=== PATIENT | male | born 1980 | race Caucasian/White ===

== ENCOUNTER 2020-05-09 22:20 | Emergency (ER) | payer OTHER, SELFPAY ==
[2020-05-09 22:37] VITALS: BP 142/77; PULSE 116; RESP 20; TEMP 37.2; O2SAT 93; BMI 43.8
--- NOTE | 2020-05-09 23:16 | XR_ITS ---
EXAMINATION: PORTABLE CHEST 1 VIEW CLINICAL INFORMATION: COVID symptoms . COMPARISON: No recent pertinent prior studies are available for comparison. TECHNIQUE: Portable frontal view of the chest was obtained. FINDINGS: The lungs are well expanded. No dense consolidation, focal infiltrate, effusion, edema, or pneumothorax. Cardiac and mediastinal silhouettes are within normal limits for technique. No acute bony abnormality seen. XR/XR chest 1V IMPRESSION: No dense consolidation or obvious focal infiltrate seen.
[2020-05-09 23:54] LABS: MANUAL DIFF FLAG NO
[2020-05-09 23:55] LABS: Basophils Percent Auto 0.3 % (0-2); Eosinophils Absolute Auto 0.1 X10*3/uL (0.0-0.4); Eosinophils Percent Auto 0.5 % (0-4); Hematocrit 52.7 % (42-52); Hemoglobin 15.6 g/dl (14.0-18.0); Imm Gran Abs Auto 0.05 X10*3/uL (0.00-0.03); Imm Gran Pct Auto 0.4 % (0.0-0.4); Lymphocytes Absolute Auto 2.5 X10*3/uL (1.2-4.9); Lymphocytes Percent Auto 18.7 % (20-40); Mean Corpuscular HGB Conc 29.6 g/dl (31.0-36.0); Mean Corpuscular Hemoglobin 24.5 pg (27.0-33.0); Mean Corpuscular Volume 82.7 fL (80-98); Mean Platelet Volume 8.8 fL (9.4-12.4); Monocytes Absolute Auto 0.8 X10*3/uL (0.1-1.2); Monocytes Percent Auto 6.3 % (2-11); Neutrophils Absolute Auto 9.7 X10*3/uL (2.0-8.3); Neutrophils Percent Auto 73.8 % (45-73); Platelet Count 341 X10*3/uL (160-400); Red Blood Count 6.37 X10*6/uL (4.60-5.80); Red Cell Distribution Width 17.2 % (11.0-16.0); White Blood Count 13.1 X10*3/uL (4.8-10.8)
[2020-05-10 00:12] LABS: Lactic Acid 1.7 mmol/L (0.5-2.0)
[2020-05-10 00:15] LABS: Anion Gap 13 (12-20); Blood Urea Nitrogen 11 mg/dL (9-16); Carbon Dioxide 31 mmol/L (22-29); Chloride 99 mmol/L (96-108); Creatinine Clr Calc Pharmacy 132.2; Estimated Glomerular Filt Rate > 60; Glucose Random 147 mg/dL (60-115); Potassium 4.4 mmol/l (3.3-5.1); Sodium 139 mmol/L (135-145)
--- NOTE | 2020-05-10 00:16 | ED_ITS ---
HPI - General Adult General Chief complaint: General Medical Stated complaint: fever Time Seen by Provider: 05/09/20 23:08 Source: patient Mode of arrival: ambulatory Limitations: language barrier History of Present Illness HPI narrative: 39 yo male with history of asthma, active smoker, obesity, diverticulitis s/p colostomy who presents with muscle aches, sore throat, abdominal rash and intermittent fever at home for the last 2 days after exposure to his in-law who were both found to be COVID-19 positive. Rash started under his left breast and spread to his abdominal wall. It is red, raised and itchy. He states he has a chronic cough from smoking but has noticed a slight wheeze as well. He is mildly SOB on exertion. Cough is dry and causes chest soreness. MD complaint: flu-like symptoms Onset (ago): day(s) (2) Location: mouth, chest and abdomen Radiation: non-radiation Severity: moderate Quality: aching Pain Consistency: intermittent Relieving factors: rest Exacerbating factors: movement Associated symptoms: cough, fever/chills, headaches, loss of appetite, malaise and rash Treatments prior to arrival: none Related Data Previous Rx's Medication Instructions Recorded albuterol sulfate 2 puff INHALATION Q4-6H PRN #6.7 g 05/10/20 azithromycin [Zithromax Z-Javon] See Rx Instructions PO .COMPLEX #6 05/10/20 tab prednisone 50 mg PO DAILY #5 tab 05/10/20 Allergies Allergy/AdvReac Type Severity Reaction Status Date / Time No Known Allergies Allergy Verified 05/09/20 22:37 [No Known Allergies*] Review of Systems Review of Systems: Constitutional: + Fever, + Chills ENT/Mouth: + sore throat, + Rhinorrhea, No Swallowing Difficulty Eyes: No Eye Pain, No Swelling, No Redness Cardiovascular: No Chest Pain, + SOB, No Orthopnea, No Edema Respiratory: + Cough, No Sputum, + Wheezing, + dyspnea Gastrointestinal: No Nausea, No Vomiting, No Diarrhea, No abdominal Pain Genitourinary: No Dysuria, No Urinary Frequency, No Hematuria Musculoskeletal: No joint pain, + Myalgias Skin: + Skin Lesions, + rash Neuro: No Weakness, No Numbness, No Dizziness, + Headache Psych: No Anxiety/Panic, No Depression Heme/Lymph: No Bruising, No Lymphadenopathy Endocrine: No Polyuria, No Polydipsia [facility] Past Medical History Medical History Asthma Colostomy in place Social History Social History Advance Directives: No Advance Directives Information Provided: No Physical Exam Vital Signs: Vital Signs: Last Vital Signs Temp 98.9 F 05/09/20 22:37 Pulse 116 H 05/09/20 22:37 Resp 20 05/09/20 22:37 BP 142/77 H 05/09/20 22:37 Pulse Ox 93 05/09/20 22:37 Body Mass Index 43.8 Appearance: Alert. Oriented X3. No acute distress. Eyes: Pupils equal, round and reactive to light. ENT: Pharynx normal. Neck: Normal inspection. Neck supple. CVS: rapid rate with regular rhythm. Pulses normal. Respiratory: No respiratory distress. Mild expiratory wheezes throughout. No rhonchi or rales Abdomen: Obese, Soft and nontender. +BS x4 Skin: cirucular red, raised and erythmatous rash under left breast and under colostomy bag on abd wall Extremities: No lower extremity edema. Neuro: Oriented X 3. No motor deficit. No sensory deficit. Course Course Course Narrative: 39 y/o male presenting with COVID symptoms after exposure. He is slightly wheezy on exam with tachycardia. He is in no respiratory distress. Low suspicion for PE. Will check COVID, flu/RSV, basic labs and CXR. Reevaluation(s) Reevaluation #1: CXR shows no pneumonia. WBC 13K with normal lactic. COVID/Flu/RSV panel is NEGATIVE. He is here with his spouse who is POSITIVE. His test is likely a false negative. This was discussed with the patient. Will treat for acute asthma exacerbation with prednisone x 5 days and give Rx for albuterol inhaler. Smoking cessation was discussed with the patient at length. Stable for discharge. Medical Decision Making Lab Data Result diagrams: 05/09/20 23:41 05/09/20 23:41 Labs: Lab Results 05/09/20 05/09/20 05/09/20 Range/Units 23:41 23:41 23:41 WBC 13.1 H (4.8-10.8) X10*3/uL RBC 6.37 H (4.60-5.80) X10*6/uL Hgb 15.6 (14.0-18.0) g/dl Hct 52.7 H (42-52) % MCV 82.7 (80-98) fL MCH 24.5 L (27.0-33.0) pg MCHC 29.6 L (31.0-36.0) g/dl RDW 17.2 H (11.0-16.0) % Plt Count 341 (160-400) X10*3/uL MPV 8.8 L (9.4-12.4) fL Immature Gran % (Auto) 0.4 (0.0-0.4) % Neut % (Auto) 73.8 H (45-73) % Lymph % (Auto) 18.7 L (20-40) % [place] % (Auto) 6.3 (2-11) % Eos % (Auto) 0.5 (0-4) % Baso % (Auto) 0.3 (0-2) % Lymph # (Auto) 2.5 (1.2-4.9) X10*3/uL [place] # (Auto) 0.8 (0.1-1.2) X10*3/uL Eos # (Auto) 0.1 (0.0-0.4) X10*3/uL Baso # (Auto) 0.0 (0.0-0.2) X10*3/uL Abs Immat Gran (auto) 0.05 H (0.00-0.03) X10*3/uL Absolute Neuts (auto) 9.7 H (2.0-8.3) X10*3/uL Absolute Nucleated RBC 0.000 (0.0-0.012) X10*3/uL Nucleated RBC % (auto) 0.0 (0.0-0.2) /100WBC Sodium 139 (135-145) mmol/L Potassium 4.4 (3.3-5.1) mmol/l Chloride 99 (96-108) mmol/L Carbon Dioxide 31 H (22-29) mmol/L Anion Gap 13 (12-20) BUN 11 (9-16) mg/dL Creatinine 0.95 (0.5-1.4) mg/dL Estim Creat Clear Calc 132.2 Estimated GFR > 60 Random Glucose 147 H (60-115) mg/dL Lactic Acid (0.5-2.0) mmol/L Calcium 9.0 (8.4-10.2) mg/dL Coronavirus (PCR) NEGATIVE (Negative) Influenza Type A (PCR) NEGATIVE (Negative) Influenza Type B (PCR) NEGATIVE (Negative) RSV RNA Qual (PCR) NEGATIVE (Negative) 05/09/20 Range/Units 23:41 WBC (4.8-10.8) X10*3/uL RBC (4.60-5.80) X10*6/uL Hgb (14.0-18.0) g/dl Hct (42-52) % MCV (80-98) fL MCH (27.0-33.0) pg MCHC (31.0-36.0) g/dl RDW (11.0-16.0) % Plt Count (160-400) X10*3/uL MPV (9.4-12.4) fL Immature Gran % (Auto) (0.0-0.4) % Neut % (Auto) (45-73) % Lymph % (Auto) (20-40) % [place] % (Auto) (2-11) % Eos % (Auto) (0-4) % Baso % (Auto) (0-2) % Lymph # (Auto) (1.2-4.9) X10*3/uL [place] # (Auto) (0.1-1.2) X10*3/uL Eos # (Auto) (0.0-0.4) X10*3/uL Baso # (Auto) (0.0-0.2) X10*3/uL Abs Immat Gran (auto) (0.00-0.03) X10*3/uL Absolute Neuts (auto) (2.0-8.3) X10*3/uL Absolute Nucleated RBC (0.0-0.012) X10*3/uL Nucleated RBC % (auto) (0.0-0.2) /100WBC Sodium (135-145) mmol/L Potassium (3.3-5.1) mmol/l Chloride (96-108) mmol/L Carbon Dioxide (22-29) mmol/L Anion Gap (12-20) BUN (9-16) mg/dL Creatinine (0.5-1.4) mg/dL Estim Creat Clear Calc Estimated GFR Random Glucose (60-115) mg/dL Lactic Acid 1.7 (0.5-2.0) mmol/L Calcium (8.4-10.2) mg/dL Coronavirus (PCR) (Negative) Influenza Type A (PCR) (Negative) Influenza Type B (PCR) (Negative) RSV RNA Qual (PCR) (Negative) Critical Care Time Critical Care Time Critical Care Time: No Discharge Plan Discharge Clinical Impression: COVID-19 Asthma exacerbation Qualifiers: Asthma severity: mild Asthma persistence: intermittent Qualified Code(s): J45.21 - Mild intermittent asthma with (acute) exacerbation Patient Disposition: Home, Self-Care Instructions: Asthma (ED), COVID-19 (Coronavirus Disease 2019) (ED) Additional Instructions: You were tested for COVID-19, Influenza A, B and RSV today. You were NEGATIVE for all of them. However because of your known exposure and your significant other being positive - your test is likely a FALSE NEGATIVE. There is no indication to repeat the test as it would not exchange mechanic at all. Assume you are COVID positive. Do not go out in public, stay home and rest. Take over the counter cold/flu medications as needed for your symptoms. Follow up with your doctor. STOP SMOKING. If you develop difficulty breathing, shortness of breath or chest pain call 911 or come back to the ER for further evaluation. Prescriptions: New prednisone 50 mg tablet 50 mg PO DAILY Qty: 5 RF: 0 albuterol sulfate 90 mcg/actuation HFA aerosol inhaler 2 puff inhalation Q4-6H PRN (Reason: shortness of breath or wheezing) Qty: 6.7 RF: 0 azithromycin [Zithromax Z-Javon] 250 mg tablet See Rx Instructions PO .COMPLEX Qty: 6 RF: 0
[2020-05-10 00:44] LABS: Influenza A PCR NEGATIVE (Negative); Influenza B PCR NEGATIVE (Negative); Resp Syncy Virus RNA Qual PCR NEGATIVE (Negative); SARS COV2 PCR INHOUSE NEGATIVE (Negative)
[2020-05-10] MEDS: Albuterol Sulfate 90 MCG 8 GM INHALER 4 PUFF INHALE (00:46)
--- NOTE | 2020-05-10 01:01 | PC.NURSE ---
GIVEN WATER PER PATIENT REQUEST.
== END 2020-05-10 01:15 | disposition home or self-care (01) ==
PROVIDERS: Physician Assistant; Emergency Provider Student in an Organized Health Care Education/Training Program
DX: J45.21 Mild intermittent asthma with (acute) exacerbation (principal); R50.9 Fever, unspecified; Z20.828 Contact with and (suspected) exposure to other viral communicable diseases
CPT/HCPCS: 0241U; 36415; 71045; 80048; 83605; 85025; 99283

== ENCOUNTER 2020-06-03 22:48 | Emergency (ER) | payer OTHER, SELFPAY ==
--- NOTE | 2020-06-03 22:57 | ED.GENADULT ---
HPI - General Adult General Chief complaint: Upper Respiratory Symptoms Stated complaint: Flu like symptoms Time Seen by Provider: 06/03/20 22:57 Source: patient Mode of arrival: ambulatory Limitations: no limitations History of Present Illness HPI narrative: This is a 39-year-old male who is an every day smoker as well as having asthma and states that he has been experiencing sore throat and dry cough for the past 2-3 days and he is concerned because his was COVID-19 positive 1 month ago. Of note, patient states that he was also tested 1 month ago but was found to be negative. He denies any shortness of breath or chest pain/palpitations but does state he had a subjective fever yesterday. Patient states he has not gotten his flu vaccine this year and used his inhaler 1 hour prior to presentation. Related Data Previous Rx's Medication Instructions Recorded albuterol sulfate 2 puff INHALATION Q4-6H PRN #6.7 g 05/10/20 azithromycin [Zithromax Z-Javon] See Rx Instructions PO .COMPLEX #6 05/10/20 tab ketoconazole 1 applic TOPICAL BID #30 g 05/10/20 prednisone 50 mg PO DAILY #5 tab 05/10/20 prednisone 40 mg PO DAILY 5 Days #10 tab 06/03/20 Allergies Allergy/AdvReac Type Severity Reaction Status Date / Time No Known Allergies Allergy Verified 05/09/20 22:37 [No Known Allergies*] Review of Systems Review of Systems: Pertinent positives and negatives as stated in HPI 10 point review of systems is otherwise negative. PMFSH Past Medical History Source: nursing notes reviewed Medical History Asthma Colostomy in place Social History Social History Advance Directives: No Physical Exam Vital Signs: Vital Signs: Last Vital Signs Temp 98.4 F 06/03/20 23:07 Pulse 107 H 06/03/20 23:07 Resp 18 06/03/20 23:07 BP 148/101 H 06/03/20 23:07 Pulse Ox 94 06/03/20 23:07 Body Mass Index 42.5 VITAL SIGNS: Reviewed. GENERAL: Well developed, well nourished, in no acute distress. HEAD: Normocephalic/atraumatic, EYES: PERRLA, EOMI intact without pain, no nystagmus/pallor/icterus noted EARS: Ext canals without abnormality, TMs non-bulging and non-erythematous NOSE: Nares patent bilateral OROPHARYNX: no oral lesions noted, posterior pharynx clear and non-erythematous without noted tonsillar enlargement/erythema/exudates NECK: Supple, no adenopathy LUNGS: Normal breath sounds. No adventitious sounds or accessory muscle use. SpO2<94> CARDIOVASCULAR: Regular rate and rhythm without noted murmurs, no JVD or lower extremity edema. ABDOMEN: Soft, non-tender, non-distended with bowel sounds. No rigidity. No guarding. No palpable masses or hernias noted, colostomy with brown stool MUSCULOSKELETAL: No tenderness, deformities, or effusions noted on gross inspection. EXTREMITIES: No cyanosis, clubbing or edema. SKIN: Inspection of the skin reveals no rashes, ulcerations, jaundice, pallor, or petechiae. NEUROLOGIC: Alert and oriented x 4. Strength and sensation to light touch were grossly intact x 4. Course Course Course Narrative: This is a 39-year-old male with history and clinical presentation most consistent with likely mild asthmatic symptoms and he was strongly encouraged to get the flu vaccine and follow-up with his primary care provider. He will be discharged with a short course of steroids but was strongly recommended to stop smoking. Who is otherwise discharged in stable condition. Discharge Plan Discharge Clinical Impression: Viral infection, Close exposure to COVID-19 virus Asthma Qualifiers: Asthma severity: mild Asthma persistence: unspecified Asthma complication type: unspecified Qualified Code(s): J45.909 - Unspecified asthma, uncomplicated Patient Disposition: Home, Self-Care Instructions: Viral Syndrome (ED) Additional Instructions: 1. Tylenol 1000 mg, por v?a oral, cada 6 horas seg?n sea necesario para miroslava corporales y temperaturas superiores a 100,4?C. No exceda los 4000 mg en 24 horas. 2. Ibuprofeno 400 mg, por v?a oral con leche o comida, cada 6 horas seg?n sea necesario para miroslava corporales o temperaturas superiores a 100,4?C. 3. Puede aplicar Aveeno o loci?n Nancie para el eccema en las ?reas de la piel que est?n irritadas, ramesh debe hacer un seguimiento con marroquin proveedor de atenci?n primaria para moe evaluaci?n y tratamiento adicionales. 4. Debe hacer un seguimiento con marroquin m?dico de atenci?n primaria dentro de los pr?ximos 2-3 d?as. 5. Debe ponerse en cuarentena de acuerdo con las pautas del estado de [place] hasta que reciba los resultados de miya pruebas de COVID-19. El paciente y / o la vishal reconocen que comprenden los resultados (seg?n corresponda), el diagn?stico, el plan de tratamiento, la necesidad de seguimiento y los s?ntomas que deber?an impulsar el regreso a la michael de emergencias. Prescriptions: New prednisone 20 mg tablet 40 mg PO DAILY 5 Days Qty: 10 RF: 0 No Action prednisone 50 mg tablet 50 mg PO DAILY Qty: 5 RF: 0 albuterol sulfate 90 mcg/actuation HFA aerosol inhaler 2 puff inhalation Q4-6H PRN (Reason: shortness of breath or wheezing) Qty: 6.7 RF: 0 azithromycin [Zithromax Z-Javon] 250 mg tablet See Rx Instructions PO .COMPLEX Qty: 6 RF: 0 ketoconazole 2 % cream 1 applic topical BID Qty: 30 RF: 0 Referrals: Physician,Unknown [Primary Care Provider] - 2 days Print Language: Occitan
[2020-06-03 23:07] VITALS: BP 148/101; PULSE 107; RESP 18; TEMP 36.9; O2SAT 94; BMI 42.5
--- NOTE | 2020-06-03 23:16 | PC.NURSE ---
PRIMARY EVAL BY MD DOUGLASS. SWABBED FOR COVID. AWAITING DC. AWARE OF PLAN OF CARE.
== END 2020-06-03 23:56 | disposition home or self-care (01) ==
PROVIDERS: Emergency Provider Student in an Organized Health Care Education/Training Program
DX: B34.9 Viral infection, unspecified (principal); R05 Cough; Z20.828 Contact with and (suspected) exposure to other viral communicable diseases
CPT/HCPCS: 99283; U0003

== ENCOUNTER 2020-10-13 21:59 | Inpatient (IN) | payer OTHER, SELFPAY ==
--- NOTE | ~2020-10-13 | CT_ITS ---
EXAMINATION: CT ANGIOGRAM OF THE CHEST WITH AND WITHOUT CONTRAST (CT PULMONARY ANGIOGRAM FOR PE) CLINICAL INFORMATION: Reason for Exam low O2 sat, tachy COMPARISON: Radiograph 10/13/2020 TECHNIQUE: Prior to contrast administration, noncontrast localization images were obtained. Subsequently, multidetector volumetric imaging was performed from the thoracic inlet to below the diaphragms following the administration of 65 mL Omnipaque 350 intravenous contrast. No contrast reaction reported Sagittal, coronal, and MIP oblique sagittal reformatted images were obtained on the CT workstation, uploaded to PACS, and reviewed. This CT examination was performed using dose optimization techniques as appropriate, variously including the following: *Automated exposure control *Adjustment of mA and/or kV according to patient size (this includes techniques or standardized protocols for targeted exams where dose is matched to indication/reason for exam; i.e. extremities or head) *Use of iterative reconstruction technique Total exam dose-length product 626 mGy-cm FINDINGS: QUALITY OF STUDY/CONTRAST BOLUS: Satisfactory. PULMONARY ARTERIES: No central or segmental pulmonary emboli. THORACIC AORTA: No aneurysm or dissection. LUNG: No focal consolidation, nodules or masses. The central airways are patent. PLEURA: Small right pleural effusion with basilar atelectasis. No pneumothorax. MEDIASTINUM: Enlarged heart size. No pericardial effusion. There is a prominent right paratracheal lymph node measuring 1 cm short axis on series 5 image 20.. No evidence of septal bowing or right heart strain. CHEST WALL/AXILLA: No axillary or internal mammary lymphadenopathy. OSSEOUS STRUCTURES: No acute or suspicious osseous abnormality. UPPER ABDOMEN: Small amount of fluid adjacent to the left lobe of the liver. No reflux of contrast into the hepatic veins to suggest elevated right heart pressures. CT/CT angio chest PE protocol IMPRESSION: 1. No pulmonary embolism. 2. Small right pleural effusion with associated atelectasis. 3. Cardiomegaly. VTE: negative
--- NOTE | ~2020-10-13 | XR_ITS ---
EXAMINATION: CHEST 2 VIEWS CLINICAL INFORMATION: Swelling. Decreased oxygen saturation. COMPARISON: May 09, 2020. TECHNIQUE: PA and lateral views of the chest were obtained. FINDINGS: The cardiac silhouette is at the upper limits of normal in size. There is equivocal interstitial prominence throughout both lungs. There is a small right pleural effusion with associated airspace disease. The osseous structures are stable. XR/XR chest 2V IMPRESSION: Small right pleural effusion with adjacent airspace disease, likely atelectasis. Equivocal interstitial prominence throughout both lungs.
[2020-10-13 22:13] VITALS: BP 134/85; PULSE 112; RESP 18; TEMP 36.6; O2SAT 80; BMI 39.1
--- NOTE | 2020-10-13 22:43 | PC.NURSE ---
DURING TRIAGE PT'S SPO2 NOTED TO BE 78-82% ON RA, PT DENIED ANY SOB, CP, COUGH, FEVER, OR KNOWN SICK CONTACTS. PT PLACED ON 2L O2 NC, SPO2 QUICKLY INCREASED TO 91%.
[2020-10-13 23:03] LABS: COVID-19 Test Negative (Negative)
--- NOTE | 2020-10-13 23:39 | PC.NURSE ---
Patient ambulated to room with steady gait. Uses oxygen at home. Awaiting ED MD evaluation.
[2020-10-14] VITALS (12 sets, daily range): BP systolic 100–164; BP diastolic 58–98; PULSE 99–115; RESP 13–21; TEMP 36.6–37.1; O2SAT 87–97
--- NOTE | 2020-10-14 | ECG_ITS ---
Test Reason : TACHY Blood Pressure : / mmHG Vent. Rate : 106 BPM Atrial Rate : 106 BPM P-R Int : 178 ms QRS Dur : 076 ms QT Int : 358 ms P-R-T Axes : 067 235 053 degrees QTc Int : 475 ms Sinus tachycardia Possible Left atrial enlargement Right superior axis deviation Septal infarct , age undetermined Abnormal ECG When compared to the previous EKG of No significant changes seen Referred By: Zana Bell Electronically Signed By:ОЛЕГ VILLALPANDO MD
--- NOTE | 2020-10-14 00:31 | ED.EXTPRO ---
HPI - Extremity Problem General Chief complaint: Extremity Problem Stated complaint: Leg swelling Time Seen by Provider: 10/14/20 00:04 Source: patient Mode of arrival: ambulatory Limitations: language barrier (Coffee Grinder used) History of Present Illness HPI Narrative: Patient is a 40-year-old male with a past medical history of asthma on 1 inhaler daily (which he did not use today) as well as multiple abdominal surgeries requiring an ostomy who presents with multiple complaints. He states the reason he came in to the ED tonight was for bilateral lower extremity swelling for the last 2 weeks, he also says he has increased fatigue but denies chest pain, shortness of breath, cough, congestion, fever, nausea, vomiting, diarrhea. Next she is complaining of a rash she has on his abdomen that is been there for a couple of weeks, he tried putting at cocoa butter on it but it only changed the color of the rash. He states it is itchy. His last complaint is that his urine seems more bubbly but normal and more yellow than normal, he denies any abnormal discharge or bleeding. He states he is only sexually active with his and states they are in a monogamous relationship but is open to testing to be double sure. Patient denies any COVID contacts and states he has been tested twice recently and was tested negative both times, he states he has never been diagnosed with COVID. He states he has spent the last 3 weeks in floor and just got back this past week. Related Data Previous Rx's Medication Instructions Recorded albuterol sulfate 2 puff INHALATION Q4-6H PRN #6.7 g 05/10/20 azithromycin [Zithromax Z-Javon] See Rx Instructions PO .COMPLEX #6 05/10/20 tab ketoconazole 1 applic TOPICAL BID #30 g 05/10/20 prednisone 50 mg PO DAILY #5 tab 05/10/20 prednisone 40 mg PO DAILY 5 Days #10 tab 06/03/20 Allergies Allergy/AdvReac Type Severity Reaction Status Date / Time No Known Allergies Allergy Verified 05/09/20 22:37 [No Known Allergies*] Review of Systems Review of Systems: Yes all other systems are reviewed and are negative PMFSH Past Medical History Medical History Asthma Colostomy in place Social History Social History (Updated 10/14/20 @ 00:35 by Alannah Figueroa PA-C) Smoking Status: Current every day smoker Tobacco Type: Cigarette Packs Per Day: 1 Years Smoked: 20 Substance Use Type: Marijuana Substance Use Frequency: Chronic Longstanding Advance Directives: No Physical Exam Vital Signs: Vital Signs: Last Vital Signs Temp 97.8 F 10/13/20 22:13 Pulse 106 H 10/14/20 01:22 Resp 18 10/13/20 22:13 BP 134/85 10/13/20 22:13 Pulse Ox 80 L 10/13/20 22:13 Body Mass Index 39.1 Const: General: cooperative, healthy appearing, comfortable and no acute distress Nutritional Appearance: obese Orientation/consciousness: patient oriented x3 HENMT: Head: Yes normal to inspection, Yes normocephalic and Yes atraumatic Eyes: General: appearance normal, both eyes and all related structures Neck: Neck: Yes normal visual inspection, Yes full ROM and Yes supple Chest: Other: Patient has multiple large plaques of buried dark, dry scaly areas under both breasts and under ostomy bag Resp: Effort & Inspection: normal respiratory effort and able to speak in complete sentences Auscultation: wheezes expiratory wheezes and scattered wheezes and diminished lung sounds Cardio: Rate: tachycardic Rhythm: regular rhythm Heart sounds: normal S1 and S2 GI: Other: ostomy bag in place Inspection: Yes obesity Palpation (GI): Soft to palpation and nontender Neuro: General: patient oriented x3 Extrem: General: Yes normal to inspection, No calf tenderness and Yes pedal edema (1+ pitting) Course Course Course Narrative: Patient is a 40-year-old male with a past medical history of asthma and multiple abdominal surgeries requiring an ostomy with multiple complaints, 1st is bilateral lower extremity swelling. Upon arrival in the ED, patient was found to be satting at 80% on room air, was given 2 L nasal cannula and immediately went up to the low 90s. Physical exam revealed 1+ pitting edema bilateral lower extremities, auscultation of lungs revealed scattered wheezes and reduced air flow. Will order solumedrol and duoneb. Will get labs including D-dimer, BNP, CBC an BMP. His 2nd concern is the rash on his chest, had Dr. Biggs examine the rash and he agreed it looks like psoriasis, will give patient steroid cream. His last complaint was urinary symptoms, will get UA and CT/NG. Reevaluation(s) Reevaluation #1: D-dimer is 341, will get CTA. BNP is 435, will give 20 mg of Lasix as patient is naive to diuretics. Bicarb 38 and gap is 10, will get a VBG. Of note, lactic acid is 1.5 and COVID is negative. Time: 01:47 Reevaluation #2: Patient to be admitted by Dr John Time: 02:27 MDM - Extremity (Nontraumatic) Lab Data Result diagrams: 10/14/20 00:53 10/14/20 00:53 Labs: Lab Results 10/13/20 10/14/20 10/14/20 Range/Units 22:42 00:53 00:53 WBC 10.4 (4.8-10.8) X10*3/uL RBC 6.17 H (4.60-5.80) X10*6/uL Hgb 14.8 (14.0-18.0) g/dl Hct 51.4 (42-52) % MCV 83.3 (80-98) fL MCH 24.0 L (27.0-33.0) pg MCHC 28.8 L (31.0-36.0) g/dl RDW 15.1 (11.0-16.0) % Plt Count 304 (160-400) X10*3/uL MPV 8.8 L (9.4-12.4) fL Immature Gran % (Auto) 0.2 (0.0-0.4) % Neut % (Auto) 56.1 (45-73) % Lymph % (Auto) 29.5 (20-40) % [place] % (Auto) 12.1 H (2-11) % Eos % (Auto) 1.7 (0-4) % Baso % (Auto) 0.4 (0-2) % Lymph # (Auto) 3.1 (1.2-4.9) X10*3/uL [place] # (Auto) 1.3 H (0.1-1.2) X10*3/uL Eos # (Auto) 0.2 (0.0-0.4) X10*3/uL Baso # (Auto) 0.0 (0.0-0.2) X10*3/uL Abs Immat Gran (auto) 0.02 (0.00-0.03) X10*3/uL Absolute Neuts (auto) 5.8 (2.0-8.3) X10*3/uL Absolute Nucleated RBC 0.000 (0.0-0.012) X10*3/uL Nucleated RBC % (auto) 0.0 (0.0-0.2) /100WBC D-Dimer 341 NG/ML Sodium (135-145) mmol/L Potassium (3.3-5.1) mmol/L Chloride (96-108) mmol/L Carbon Dioxide (22-29) mmol/L Anion Gap (12-20) BUN (9-16) mg/dL Creatinine (0.5-1.4) mg/dL Estim Creat Clear Calc Estimated GFR Random Glucose (60-115) mg/dL Lactic Acid (0.5-2.0) mmol/L Calcium (8.4-10.2) mg/dL B-Natriuretic Peptide (<100) pg/mL COVID-19 (ANGEL) Negative (Negative) COVID-19 Clin Com See Note 10/14/20 10/14/20 10/14/20 Range/Units 00:53 00:53 00:54 WBC (4.8-10.8) X10*3/uL RBC (4.60-5.80) X10*6/uL Hgb (14.0-18.0) g/dl Hct (42-52) % MCV (80-98) fL MCH (27.0-33.0) pg MCHC (31.0-36.0) g/dl RDW (11.0-16.0) % Plt Count (160-400) X10*3/uL MPV (9.4-12.4) fL Immature Gran % (Auto) (0.0-0.4) % Neut % (Auto) (45-73) % Lymph % (Auto) (20-40) % [place] % (Auto) (2-11) % Eos % (Auto) (0-4) % Baso % (Auto) (0-2) % Lymph # (Auto) (1.2-4.9) X10*3/uL [place] # (Auto) (0.1-1.2) X10*3/uL Eos # (Auto) (0.0-0.4) X10*3/uL Baso # (Auto) (0.0-0.2) X10*3/uL Abs Immat Gran (auto) (0.00-0.03) X10*3/uL Absolute Neuts (auto) (2.0-8.3) X10*3/uL Absolute Nucleated RBC (0.0-0.012) X10*3/uL Nucleated RBC % (auto) (0.0-0.2) /100WBC D-Dimer NG/ML Sodium 142 (135-145) mmol/L Potassium 4.4 (3.3-5.1) mmol/L Chloride 98 (96-108) mmol/L Carbon Dioxide 38 H (22-29) mmol/L Anion Gap 10 L (12-20) BUN 11 (9-16) mg/dL Creatinine 1.00 (0.5-1.4) mg/dL Estim Creat Clear Calc 116.9 Estimated GFR > 60 Random Glucose 112 (60-115) mg/dL Lactic Acid 1.5 (0.5-2.0) mmol/L Calcium 8.9 (8.4-10.2) mg/dL B-Natriuretic Peptide 435 H (<100) pg/mL COVID-19 (ANGEL) (Negative) COVID-19 Clin Com Imaging Data Chest x-ray: Attestation: I personally reviewed and interpreted this imaging study as follows: Radiologist's impression: [address] [id number] ReportSigned Patient: Aren Alcazar#: [id number]: 1980Acct:[id number]/Sex: 40 / MADM Date: 10/13/20Loc: [address] Dr: Ordering Physician: Generic ED Physician Date of Service: 10/13/20 Procedure(s): XR chest 2V Accession Number(s): [id number] cc: Generic ED Physician~ EXAMINATION: CHEST 2 VIEWS CLINICAL INFORMATION: Swelling. Decreased oxygen saturation. COMPARISON: May 09, 2020. TECHNIQUE: PA and lateral views of the chest were obtained. FINDINGS: The cardiac silhouette is at the upper limits of normal in size. There is equivocal interstitial prominence throughout both lungs. There is a small right pleural effusion with associated airspace disease. The osseous structures are stable. XR/XR chest 2V IMPRESSION: Small right pleural effusion with adjacent airspace disease, likely atelectasis. Equivocal interstitial prominence throughout both lungs. Dictated By:HIWOT SKINNER MDSigned By:<Electronically signed by HIWOT SKINNER MD in [place]>10/13/202250 DD/ 46TD/TT: Home Health Physical Therapist: CT scan - chest: Attestation: I personally reviewed and interpreted this imaging study as follows: My impression: Small right pleural effusion with associated atelectasis. Cardiomegaly Radiologist's impression: [address] [id number] Scan ReportSigned Patient: Aren Alcazar#: [id number]: 1980Acct:[id number]/Sex: 40 / MADM Date: 10/14/20Loc: E[address]tt[address] Dr: Ordering Physician: Alannah Figueroa PA-C Date of Service: 10/14/20 Procedure(s): CT angio chest PE protocol Accession Number(s): [id number] cc: Alannah Figueroa PA-C~ EXAMINATION: CT ANGIOGRAM OF THE CHEST WITH AND WITHOUT CONTRAST (CT PULMONARY ANGIOGRAM FOR PE) CLINICAL INFORMATION: Reason for Exam low O2 sat, tachy COMPARISON: Radiograph 10/13/2020 TECHNIQUE: Prior to contrast administration, noncontrast localization images were obtained. Subsequently, multidetector volumetric imaging was performed from the thoracic inlet to below the diaphragms following the administration of 65 mL Omnipaque 350 intravenous contrast. No contrast reaction reported Sagittal, coronal, and MIP oblique sagittal reformatted images were obtained on the CT workstation, uploaded to PACS, and reviewed. This CT examination was performed using dose optimization techniques as appropriate, variously including the following: *Automated exposure control *Adjustment of mA and/or kV according to patient size (this includes techniques or standardized protocols for targeted exams where dose is matched to indication/reason for exam; i.e. extremities or head) *Use of iterative reconstruction technique Total exam dose-length product 626 mGy-cm FINDINGS: QUALITY OF STUDY/CONTRAST BOLUS: Satisfactory. PULMONARY ARTERIES: No central or segmental pulmonary emboli. THORACIC AORTA: No aneurysm or dissection. LUNG: No focal consolidation, nodules or masses. The central airways are patent. PLEURA: Small right pleural effusion with basilar atelectasis. No pneumothorax. MEDIASTINUM: Enlarged heart size. No pericardial effusion. There is a prominent right paratracheal lymph node measuring 1 cm short axis on series 5 image 20.. No evidence of septal bowing or right heart strain. CHEST WALL/AXILLA: No axillary or internal mammary lymphadenopathy. OSSEOUS STRUCTURES: No acute or suspicious osseous abnormality. UPPER ABDOMEN: Small amount of fluid adjacent to the left lobe of the liver. No reflux of contrast into the hepatic veins to suggest elevated right heart pressures. CT/CT angio chest PE protocol IMPRESSION: 1. No pulmonary embolism. 2. Small right pleural effusion with associated atelectasis. 3. Cardiomegaly. VTE: negative Dictated By:Dakota Keene MDSigned By:<Electronically signed by Dakota Keene MD in [place]>10/14/20 0212 DD/ 0026 Discharge Plan Discharge Clinical Impression: Psoriasis, Lower extremity edema Acute exacerbation of CHF (congestive heart failure) Qualifiers: Heart failure type: unspecified Qualified Code(s): I50.9 - Heart failure, unspecified COPD (chronic obstructive pulmonary disease) Qualifiers: COPD type: unspecified COPD Qualified Code(s): J44.9 - Chronic obstructive pulmonary disease, unspecified Patient Disposition: Admitted As Inpatient
[2020-10-14 01:00] LABS: MANUAL DIFF FLAG NO
[2020-10-14 01:03] LABS: Basophils Percent Auto 0.4 % (0-2); Eosinophils Absolute Auto 0.2 X10*3/uL (0.0-0.4); Eosinophils Percent Auto 1.7 % (0-4); Hematocrit 51.4 % (42-52); Hemoglobin 14.8 g/dl (14.0-18.0); Imm Gran Abs Auto 0.02 X10*3/uL (0.00-0.03); Imm Gran Pct Auto 0.2 % (0.0-0.4); Lymphocytes Absolute Auto 3.1 X10*3/uL (1.2-4.9); Lymphocytes Percent Auto 29.5 % (20-40); Mean Corpuscular HGB Conc 28.8 g/dl (31.0-36.0); Mean Corpuscular Volume 83.3 fL (80-98); Mean Platelet Volume 8.8 fL (9.4-12.4); Monocytes Absolute Auto 1.3 X10*3/uL (0.1-1.2); Monocytes Percent Auto 12.1 % (2-11); Neutrophils Absolute Auto 5.8 X10*3/uL (2.0-8.3); Neutrophils Percent Auto 56.1 % (45-73); Platelet Count 304 X10*3/uL (160-400); Red Blood Count 6.17 X10*6/uL (4.60-5.80); Red Cell Distribution Width 15.1 % (11.0-16.0); White Blood Count 10.4 X10*3/uL (4.8-10.8)
[2020-10-14 01:11] LABS: D Dimer 341 NG/ML
[2020-10-14] MEDS: Albuterol/Iprat 2.5/0.5MG 3 ML AMPUL.NEB INHALE (01:12)
[2020-10-14 01:17] LABS: Lactic Acid 1.5 mmol/L (0.5-2.0)
[2020-10-14] MEDS: Albuterol Sulfate (0.083%) 2.5 MG/3 ML VIAL.NEB 10 MG INHALE (01:22)
[2020-10-14 01:26] LABS: B Type Natriuretic Peptide 435 pg/mL (<100)
[2020-10-14 01:29] LABS: Anion Gap 10 (12-20); Blood Urea Nitrogen 11 mg/dL (9-16); Calcium 8.9 mg/dL (8.4-10.2); Carbon Dioxide 38 mmol/L (22-29); Chloride 98 mmol/L (96-108); Creatinine Clr Calc Pharmacy 116.9; Estimated Glomerular Filt Rate > 60; Glucose Random 112 mg/dL (60-115); Potassium 4.4 mmol/L (3.3-5.1); Sodium 142 mmol/L (135-145)
[2020-10-14] MEDS: methylPREDNISolone Sod Succ 125 MG/2 ML VIAL 60 MG IVPUSH (01:31)
[2020-10-14] MEDS: iohexoL 350 MG/ML 100 ML INFUS..BTL 85 ML IV (01:47)
--- NOTE | 2020-10-14 02:02 | ECG_ITS ---
Test Reason : ASTHMA Blood Pressure : / mmHG Vent. Rate : 112 BPM Atrial Rate : 112 BPM P-R Int : 176 ms QRS Dur : 074 ms QT Int : 326 ms P-R-T Axes : 076 -79 047 degrees QTc Int : 444 ms Sinus tachycardia Possible Left atrial enlargement Left axis deviation Septal infarct , age undetermined Inferior infarct , age undetermined Abnormal ECG No previous ECGs available Referred By: Alannah Figueroa Electronically Signed By:Zana Bell
[2020-10-14] MEDS: Furosemide 20 MG/2 ML VIAL IVPUSH (02:49)
[2020-10-14 03:14] LABS: Venous Blood Gas Refer to POC result
[2020-10-14 03:16] LABS: VBG Base Excess 7.4 mmol/L; VBG HCO3 36 mmol/L (22-26); VBG pCO2 67 mmHg; VBG pH 7.33 (7.32-7.43); VBG pO2 49 mmHg
--- NOTE | 2020-10-14 03:57 | PM.IMHP ---
History of Present Illness Date of Service: 10/14/20 Chief Complaint: Lower extremity ED 40-year-old male with past medical history of asthma presents to the hospital with complaints of lower extremity edema for the past few days. Patient reports that he noticed swelling in his feet bilaterally as well as dyspnea on exertion that was worsening over the past 4-5 days. He also has a cough that is productive, no fever or chills, no chest pain, no palpitations. Denies any similar episode in the past. Denies any history of heart disease. He denies any headache, change in vision, abdominal pain nausea or vomiting, no urinary symptoms and no lower extremity edema. No diarrhea or constipation. Arrival to the ED hemodynamically stable with a heart rate of 112, blood pressure of 140. Satting 80% on room air. Labs are significant for WBC count of 10.4, hemoglobin of 14.8, sodium of 142, potassium 4.4, BUN of 11, creatinine of 1, BNP of 435, COVID negative, chest CT angiogram shows no evidence of PE, small right pleural effusion with associated atelectasis, cardiomegaly. Admitted for further management of CHF Past medical history as below and to clarify patient has a cough due to an infection in the colon per him. Review of Systems Review of Systems: Yes all other systems are reviewed and are negative [facility] Medical History Asthma Colostomy in place Social History Smoking Status: Current every day smoker Tobacco Type: Cigarette Packs Per Day: 1 Years Smoked: 20 Substance Use Type: Marijuana Substance Use Frequency: Chronic Longstanding Advance Directives: No Meds Allergies Allergy/AdvReac Type Severity Reaction Status Date / Time No Known Allergies Allergy Verified 05/09/20 22:37 [No Known Allergies*] Active Medications: Current Medications Generic Name Dose Route Start Last Admin Trade Name Freq PRN Reason Stop Dose Admin Pharmacy Consult 1 each 10/14/20 02:15 Consult Rx Perform Med Rec MISCELLANE ONCE PRN Consult order Physical Exam Vital Signs and Narrative: Vital Signs: Last Vital Signs Temp 97.8 F 10/13/20 22:13 Pulse 106 H 10/14/20 01:22 Resp 18 10/13/20 22:13 BP 134/85 10/13/20 22:13 Pulse Ox 80 L 10/13/20 22:13 Body Mass Index 39.1 Const: General: cooperative and no acute distress Orientation/consciousness: patient oriented x3 Eyes: General: appearance normal, both eyes and all related structures Resp: Effort & Inspection: normal respiratory effort and able to speak in complete sentences Auscultation: clear to auscultation bilaterally Cardio: Rate: regular rate Rhythm: regular rhythm GI: Other: Colostomy bag in place Palpation (GI): Soft to palpation Auscultation: normal bowel sounds Skin: General skin exam: no rashes or lesions noted Neuro: General: patient oriented x3 Cognition (Neuro): normal cognition Extrem: Other: 3+ edema up to the knees bilaterally General: Yes normal to inspection Results Labs CBC and Chem 7: 10/14/20 00:53 10/14/20 00:53 Labs: Laboratory Results - last 24 hr 10/13/20 10/14/20 10/14/20 22:42 00:53 00:53 MCV 83.3 MCH 24.0 L MCHC 28.8 L RDW 15.1 Plt Count 304 MPV 8.8 L Immature Gran % (Auto) 0.2 Neut % (Auto) 56.1 Lymph % (Auto) 29.5 [place] % (Auto) 12.1 H Eos % (Auto) 1.7 Baso % (Auto) 0.4 Lymph # (Auto) 3.1 [place] # (Auto) 1.3 H Eos # (Auto) 0.2 Baso # (Auto) 0.0 Abs Immat Gran (auto) 0.02 Absolute Neuts (auto) 5.8 Absolute Nucleated RBC 0.000 Nucleated RBC % (auto) 0.0 D-Dimer 341 VBG pH VBG pCO2 VBG pO2 VBG HCO3 VBG O2 Saturation VBG Base Excess Anion Gap Estim Creat Clear Calc Estimated GFR Random Glucose Lactic Acid Calcium B-Natriuretic Peptide COVID-19 (ANGEL) Negative COVID-19 Clin Com See Note 10/14/20 10/14/20 10/14/20 00:53 00:53 00:54 MCV MCH MCHC RDW Plt Count MPV Immature Gran % (Auto) Neut % (Auto) Lymph % (Auto) [place] % (Auto) Eos % (Auto) Baso % (Auto) Lymph # (Auto) [place] # (Auto) Eos # (Auto) Baso # (Auto) Abs Immat Gran (auto) Absolute Neuts (auto) Absolute Nucleated RBC Nucleated RBC % (auto) D-Dimer VBG pH VBG pCO2 VBG pO2 VBG HCO3 VBG O2 Saturation VBG Base Excess Anion Gap 10 L Estim Creat Clear Calc 116.9 Estimated GFR > 60 Random Glucose 112 Lactic Acid 1.5 Calcium 8.9 B-Natriuretic Peptide 435 H COVID-19 (ANGEL) COVID-19 [employer] Com 10/14/20 03:08 MCV MCH MCHC RDW Plt Count MPV Immature Gran % (Auto) Neut % (Auto) Lymph % (Auto) [place] % (Auto) Eos % (Auto) Baso % (Auto) Lymph # (Auto) [place] # (Auto) Eos # (Auto) Baso # (Auto) Abs Immat Gran (auto) Absolute Neuts (auto) Absolute Nucleated RBC Nucleated RBC % (auto) D-Dimer VBG pH 7.33 VBG pCO2 67 VBG pO2 49 VBG HCO3 36 H VBG O2 Saturation 81.0 VBG Base Excess 7.4 Anion Gap Estim Creat Clear Calc Estimated GFR Random Glucose Lactic Acid Calcium B-Natriuretic Peptide COVID-19 (ANGEL) COVID-19 Clin Com Imaging Radiologist's Impressions: Impressions Chest X-Ray 10/13/20 22:47 IMPRESSION: Small right pleural effusion with adjacent airspace disease, likely atelectasis. Equivocal interstitial prominence throughout both lungs. Chest CTA 10/14/20 00:26 IMPRESSION: 1. No pulmonary embolism. 2. Small right pleural effusion with associated atelectasis. 3. Cardiomegaly. VTE: negative Assessment and Plan (1) Acute exacerbation of CHF (congestive heart failure): Qualifiers: Heart failure type: unspecified Qualified Code(s): I50.9 - Heart failure, unspecified Status: Acute (2) Lower extremity edema: Status: Acute 40-year-old male with past medical history of asthma presents to the hospital with lower extremity edema. # acute CHF exacerbation/onset - patient with no history of CHF in the past - has elevated BNP, lower extremity edema, orthopnea, PND, dyspnea on exertion - chest CT angiogram showing pleural effusion - no PE - will start patient on Lasix 40 IV b.i.d. - strict I&O, low-sodium diet, daily weight - will also start him on Lopressor, atorvastatin, for new onset CHF - will obtain troponin - echocardiogram - cardiology consult # lower extremity edema - manage as CHF exacerbation - will start Lasix IV b.i.d. as above # asthma - no exacerbation - continue albuterol inhaler p.r.n. DVT prophylaxis: Heparin subQ
[2020-10-14 04:07] LABS: Glucose Urine UA NEG (NEG); Leukocyte Esterase Urine NEG (NEG); Nitrite Urine NEG (NEG); PH 5.5 (5.0-8.0); Urine Blood 1+ (NEG); Urine Ketones NEG (NEG); Urine Protein NEG (NEG-TRACE)
[2020-10-14 04:10] LABS: Appearance Urine CLEAR; Color Urine COLORLESS
[2020-10-14 04:52] LABS: Granular Casts Urine 0-2 /LPF; Mucus Urine TRACE /LPF; Squamous Epithelial Cell Urine TRACE /LPF; WBC Urine 0-2 /HPF (0-4)
[2020-10-14 06:21] LABS: CT PCR NOT DETECTED (Not Detect.); NG PCR NOT DETECTED (Not Detect.)
--- NOTE | 2020-10-14 07:51 | CA_ITS ---
Transthoracic Echocardiogram Patient (Last, First, Middle): Niranjan Alcazar, Gender: Male Date of : 1980 Age: 40 Procedure Date: 10/14/2020 Procedure Type: Transthoracic Echocardiogram Location: ER Height: 170.18 cm Weight: 113.4 kg BSA: 2.22 m2 Heart Rate: bpm BP: 141 / 66 mmHg Clipper Counters: JOSE GUADALUPE Referring MD: Edi Alberto MD Symptoms: CHF Study Quality: Technically Difficult/contrast Conclusions: - The left ventricular systolic function is mildly decreased. The visually estimated ejection fraction is between 40-45%. - There is a flattened septum in systole and diastole consistent with right ventricular pressure and volume overload. - Mildly increased right ventricular cavity size. There is normal right ventricular systolic function. - The left atrium is moderately dilated. The right atrium is moderately dilated. - Significantly elevated right atrial pressure. Mild to moderate pulmonary hypertension is present. Findings Procedure Information Contrast agent, definity, is being given per protocol without apparent complications. Left Ventricle Normal left ventricular cavity size. There is normal left ventricular wall thickness. The left ventricular systolic function is mildly decreased. The visually estimated ejection fraction is between 40-45%. There is mild global hypokinesis. There is a flattened septum in systole and diastole consistent with right ventricular pressure and volume overload. Diastolic function is indeterminate on the basis of available data. Right Ventricle Mildly increased right ventricular cavity size. There is normal right ventricular systolic function. Atria The left atrium is moderately dilated. The right atrium is moderately dilated. Aortic Valve The aortic valve was not well visualized. There is no aortic valve stenosis. There is no aortic valve regurgitation. Mitral Valve Likely normal mitral valve structure and function. There is no mitral valve regurgitation. There is no mitral valve stenosis. Pulmonic Valve The pulmonic valve is likely normal. Tricuspid Valve Likely normal tricuspid valve structure and function. Significantly elevated right atrial pressure. Mild to moderate pulmonary hypertension is present. Great Vessels All visible segments of the aorta are normal in size. The visualized portions of the pulmonary artery and branches are normal. Venous The inferior vena cava is severely dilated and does not collapse with inspiration. Pericardium/Pleural There is no evidence of pericardial effusion. Prior Study Comparison No prior study available for comparison. Measurements 2D Linear Measurements IVSd: 1.02 0.6-0.9/0.6-1.0 cm LVIDd: 5.88 3.9-5.3/4.2-5.9 cm LVIDd Index: 2.65 2.4-3.2/2.2-3.1 cm/m2 LVIDs: 4.92 2.0-3.6 cm LVPWd: 1.08 0.7-1.1 cm Ao Root: 3.00 2.1-3.5 cm LA Diam: 3.30 2.7-3.8/3.0-4.0 cm LAIDs Index: 1.49 1.5-2.3 cm/m2 LV Mass: 317.07 67-162/88-224 g LV Mass Index: 142.82 43-95/49-115 g/m2 LVOT Diam: 2.10 3.0+(-)1.3 cm 2D Systolic Function EF 4C: 39.90 >55% EF 2C: 42.60 >55% EF BiP: 39.70 >55% Aortic Valve AoV Pk Tod: 1.55 AoV Mn Tod: 1.15 AoV VTI: 0.28 AoV Pk Grad: 10.00 Aov Mn Grad: 6.00 IGOR Cont.VTI: 2.03 LVOT LVOT Pk Tod: 0.97 LVOT Mn Tod: 0.70 LVOT VTI: 0.16 LVOT Pk Grad: 4.00 LVOT Mn Grad: 2.00 LVOT Diam: 2.10 LVOT Area: 3.46 Tricuspid Valve TR Pk Tod: 2.84 TR Pk Grad: 32.00 RA Press: 15.00 RVSP: 47.00 Great Vessels Aorta Ao Root-2D: 3.00 2.0-3.7 cm Ao Asc: 3.10 2.1-3.4 cm Updated in Other Vendor System with Status of Final Zana Bell MD electronically signed on 10/14/2020 12:43:21 PM with status of Final
--- NOTE | 2020-10-14 08:15 | PC.NURSE ---
URINE OUTPUT WAS 1800ML
--- NOTE | 2020-10-14 08:43 | PC.NURSE ---
lungs - jin upper lobes diminished, jin lower lobes slight crackles noted. md aware. pt aware of plan of care.
[2020-10-14 08:58] LABS: Troponin-I High Sensitivity 170.2 ng/L (<3.5-35.0)
--- NOTE | 2020-10-14 10:18 | PM.CNCAR ---
History of Present Illness History of Present Illness Date of Service: 10/14/20 Requesting physician: Marisa Green Chief complaint: CHF EXACERBATION Narrative: 40-year-old gentleman was background history of asthma and previous colostomy. He is a current smoker and also smokes marijuana. Does not drink or do any other recreational drugs otherwise. He is presenting for lower extremity edema and shortness of breath ongoing for couple of weeks. He has has been fatigued. He also has been experiencing some orthopnea. With these symptoms he presented to [facility] and his blood workup and x-ray pointed to overt congestive heart failure. He was given IV diuretics. He is saying he is feeling better with that. Denying any chest discomfort. Review of Systems Review of Systems: No chest pain PMFSH Past Medical History Medical History Asthma Colostomy in place Social History Social History Alcohol intake: never Smoking Status: Current every day smoker Tobacco Type: Cigarette Packs Per Day: 1 Years Smoked: 20 Use of substances other than those prescribed or required for medical reasons: Yes Substance Use Type: Marijuana Substance Use Frequency: Chronic Longstanding Advance Directives: No Meds Allergies Allergy/AdvReac Type Severity Reaction Status Date / Time No Known Allergies Allergy Verified 05/09/20 22:37 [No Known Allergies*] Active Medications: Current Medications Generic Name Dose Route Start Last Admin Trade Name Freq PRN Reason Stop Dose Admin Furosemide 40 mg 10/14/20 09:00 Furosemide 40 Mg/4 Ml Vial IVPUSH BID@0900,1800 TERRANCE Protocol Lisinopril 2.5 mg 10/14/20 11:00 Lisinopril 2.5 Mg Tablet PO DAILY TERRANCE Protocol Pharmacy Consult 1 each 10/14/20 02:15 Consult Rx Perform Med Rec MISCELLANE ONCE PRN Consult order Home Medications Medication Instructions Recorded Confirmed Last Taken Type No Known Home Meds 10/14/20 10/14/20 Unknown History Physical Exam Vital Signs: Vital Signs: Last Vital Signs Temp 98.6 F 10/14/20 08:36 Pulse 110 H 10/14/20 08:36 Resp 13 10/14/20 08:36 BP 141/66 H 10/14/20 08:36 Pulse Ox 94 10/14/20 08:36 Body Mass Index 39.1 GENERAL APPEARANCE: in no acute distress. HEENT: unremarkable. HEAD: normocephalic, atraumatic. NECK/THYROID: no carotid bruit, + jugular venous distention. SKIN: no suspicious lesions, warm and dry. HEART: no murmurs, regular rate and rhythm, S1, S2 normal. Tachycardia LUNGS: Crackles at bases. ABDOMEN: normal, bowel sounds present, soft, nontender, nondistended. EXTREMITIES: no clubbing, cyanosis. One to 2+ edema. PERIPHERAL PULSES: equal. NEUROLOGIC: nonfocal, alert and oriented. PSYCH: mood/affect full range. Results Labs and Meds Result diagrams: 10/14/20 00:53 10/14/20 00:53 Lab results: Laboratory Results - last 24 hr 10/13/20 10/14/20 10/14/20 22:42 00:53 00:53 WBC 10.4 RBC 6.17 H Hgb 14.8 Hct 51.4 MCV 83.3 MCH 24.0 L MCHC 28.8 L RDW 15.1 Plt Count 304 MPV 8.8 L Immature Gran % (Auto) 0.2 Neut % (Auto) 56.1 Lymph % (Auto) 29.5 [place] % (Auto) 12.1 H Eos % (Auto) 1.7 Baso % (Auto) 0.4 Lymph # (Auto) 3.1 [place] # (Auto) 1.3 H Eos # (Auto) 0.2 Baso # (Auto) 0.0 Abs Immat Gran (auto) 0.02 Absolute Neuts (auto) 5.8 Absolute Nucleated RBC 0.000 Nucleated RBC % (auto) 0.0 D-Dimer 341 VBG pH VBG pCO2 VBG pO2 VBG HCO3 VBG O2 Saturation VBG Base Excess Sodium Potassium Chloride Carbon Dioxide Anion Gap BUN Creatinine Estim Creat Clear Calc Estimated GFR Random Glucose Lactic Acid Calcium Troponin I High Sens B-Natriuretic Peptide Urine Color Urine Appearance Urine pH Ur Specific [place] Urine Protein Urine Glucose (UA) Urine Ketones Urine Blood Urine Nitrite Ur Leukocyte Esterase Urine RBC Urine WBC Ur Squamous Epith Cells Urine Bacteria Granular Casts Urine Mucus Chlam trachomat DNA PCR COVID-19 ([facility]) Negative COVID-19 Clin Com See Note N.gonorrhoeae DNA (PCR) 04/10/14/20 10/14/20 00:53 00:53 00:54 WBC RBC Hgb Hct MCV MCH MCHC RDW Plt Count MPV Immature Gran % (Auto) Neut % (Auto) Lymph % (Auto) [place] % (Auto) Eos % (Auto) Baso % (Auto) Lymph # (Auto) [place] # (Auto) Eos # (Auto) Baso # (Auto) Abs Immat Gran (auto) Absolute Neuts (auto) Absolute Nucleated RBC Nucleated RBC % (auto) D-Dimer VBG pH VBG pCO2 VBG pO2 VBG HCO3 VBG O2 Saturation VBG Base Excess Sodium 142 Potassium 4.4 Chloride 98 Carbon Dioxide 38 H Anion Gap 10 L BUN 11 Creatinine 1.00 Estim Creat Clear Calc 116.9 Estimated GFR > 60 Random Glucose 112 Lactic Acid 1.5 Calcium 8.9 Troponin I High Sens B-Natriuretic Peptide 435 H Urine Color Urine Appearance Urine pH Ur Specific [place] Urine Protein Urine Glucose (UA) Urine Ketones Urine Blood Urine Nitrite Ur Leukocyte Esterase Urine RBC Urine WBC Ur Squamous Epith Cells Urine Bacteria Granular Casts Urine Mucus Chlam trachomat DNA PCR COVID-19 ([facility]) COVID-19 Clin Com N.gonorrhoeae DNA (PCR) 10/14/20 10/14/20 10/14/20 03:08 03:59 03:59 WBC RBC Hgb Hct MCV MCH MCHC RDW Plt Count MPV Immature Gran % (Auto) Neut % (Auto) Lymph % (Auto) [place] % (Auto) Eos % (Auto) Baso % (Auto) Lymph # (Auto) [place] # (Auto) Eos # (Auto) Baso # (Auto) Abs Immat Gran (auto) Absolute Neuts (auto) Absolute Nucleated RBC Nucleated RBC % (auto) D-Dimer VBG pH 7.33 VBG pCO2 67 VBG pO2 49 VBG HCO3 36 H VBG O2 Saturation 81.0 VBG Base Excess 7.4 Sodium Potassium Chloride Carbon Dioxide Anion Gap BUN Creatinine Estim Creat Clear Calc Estimated GFR Random Glucose Lactic Acid Calcium Troponin I High Sens B-Natriuretic Peptide Urine Color COLORLESS Urine Appearance CLEAR Urine pH 5.5 Ur Specific [place] 1.010 Urine Protein NEG Urine Glucose (UA) NEG Urine Ketones NEG Urine Blood 1+ H Urine Nitrite NEG Ur Leukocyte Esterase NEG Urine RBC 1-4 Urine WBC 0-2 Ur Squamous Epith Cells TRACE Urine Bacteria NONE Granular Casts 0-2 Urine Mucus TRACE Chlam trachomat DNA PCR NOT DETECTED COVID-19 ([facility]) COVID-19 Clin Com N.gonorrhoeae DNA (PCR) NOT DETECTED 10/14/20 08:12 WBC RBC Hgb Hct MCV MCH MCHC RDW Plt Count MPV Immature Gran % (Auto) Neut % (Auto) Lymph % (Auto) [place] % (Auto) Eos % (Auto) Baso % (Auto) Lymph # (Auto) [place] # (Auto) Eos # (Auto) Baso # (Auto) Abs Immat Gran (auto) Absolute Neuts (auto) Absolute Nucleated RBC Nucleated RBC % (auto) D-Dimer VBG pH VBG pCO2 VBG pO2 VBG HCO3 VBG O2 Saturation VBG Base Excess Sodium Potassium Chloride Carbon Dioxide Anion Gap BUN Creatinine Estim Creat Clear Calc Estimated GFR Random Glucose Lactic Acid Calcium Troponin I High Sens 170.2 H B-Natriuretic Peptide Urine Color Urine Appearance Urine pH Ur Specific [place] Urine Protein Urine Glucose (UA) Urine Ketones Urine Blood Urine Nitrite Ur Leukocyte Esterase Urine RBC Urine WBC Ur Squamous Epith Cells Urine Bacteria Granular Casts Urine Mucus Chlam trachomat DNA PCR COVID-19 ([facility]) COVID-19 Clin Com N.gonorrhoeae DNA (PCR) Imaging Radiologist's impression: Impressions Chest X-Ray 10/13/20 22:47 IMPRESSION: Small right pleural effusion with adjacent airspace disease, likely atelectasis. Equivocal interstitial prominence throughout both lungs. Chest CTA 10/14/20 00:26 IMPRESSION: 1. No pulmonary embolism. 2. Small right pleural effusion with associated atelectasis. 3. Cardiomegaly. VTE: negative Assessment and Plan (1) Acute exacerbation of CHF (congestive heart failure): Qualifiers: Heart failure type: unspecified Qualified Code(s): I50.9 - Heart failure, unspecified Status: Acute 40-year-old gentleman who is presenting with shortness of breath and lower extremity edema. Clinically he is in heart failure. Agree with 40 mg IV Lasix b.i.d.. Add lisinopril 2.5 mg once a day. Please hold beta-blockers till we have echocardiography. His tachycardia can be compensatory. Please check a drug screen. We will follow along with you. Thank you for allowing me to participate in the care of your patient. Please feel free to contact me if you have any questions.
--- NOTE | 2020-10-14 10:53 | PC.NURSE ---
PT SEEN BY HOSP AWARE OFPMA OF CARE FOR ADMISSION TO HOSP.
[2020-10-14] MEDS: lisinopriL 2.5 MG TABLET PO (10:58)
[2020-10-14 11:39] LABS: Amphetamine Screen Urine Not Detected (Not Detect); Barbiturates, Urine Not Detected (Not Detect); Benzodiazepines Screen Urine Not Detected (Not Detect); Cannabinoid Screen Urine Not Detected (Not Detect); Cocaine Screen Urine Not Detected (Not Detect); Opiate Screen Urine Not Detected (Not Detect); Phencyclidine Screen Urine Not Detected (Not Detect)
--- NOTE | 2020-10-14 12:13 | MHC.CM.PN ---
Attempted to meet with patient in regards to discharge planning. Nursing care currently being provided. Will attempt to meet again. Continue to monitor for d/c needs.
--- NOTE | 2020-10-14 12:44 | PC.NURSE ---
URINE OUTPUT 300ML
--- NOTE | 2020-10-14 12:50 | PC.NURSE ---
[place] [facility] [place]
--- NOTE | 2020-10-14 15:32 | PC.NURSE ---
nuse to nurse given to tommie (rn). pt aware of plan of care for admission to hosp.
[2020-10-14] MEDS: 0.9 % Sodium Chloride Flush 3 ML SYRINGE IVFLUSH ×2 (18:10→20:37)
[2020-10-14] MEDS: Atorvastatin Calcium 40 MG TABLET PO (18:10)
[2020-10-14] MEDS: Nicotine 14 MG PATCH.TD24 TRANSDERMA (18:10)
[2020-10-14] MEDS: Heparin Sodium,Porcine 5,000 UNIT/ML VIAL 5000 UNIT SUBCUT (18:10)
[2020-10-14 18:56] LABS: B Type Natriuretic Peptide 449 pg/mL (<100)
[2020-10-14 19:02] LABS: Troponin-I High Sensitivity 138.1 ng/L (<3.5-35.0)
[2020-10-15] VITALS (7 sets, daily range): BP systolic 113–144; BP diastolic 66–84; PULSE 93–114; RESP 19–20; TEMP 36.1–37.5; O2SAT 90–95
[2020-10-15] MEDS: Heparin Sodium,Porcine 5,000 UNIT/ML VIAL 5000 UNIT SUBCUT ×2 (05:15→17:29)
[2020-10-15 06:59] LABS: Basophils Percent Auto 0.2 % (0-2); Hematocrit 51.5 % (42-52); Imm Gran Abs Auto 0.07 X10*3/uL (0.00-0.03); Imm Gran Pct Auto 0.4 % (0.0-0.4); Lymphocytes Absolute Auto 2.8 X10*3/uL (1.2-4.9); Lymphocytes Percent Auto 15.7 % (20-40); MANUAL DIFF FLAG SCAN; Mean Corpuscular HGB Conc 29.1 g/dl (31.0-36.0); Mean Corpuscular Hemoglobin 23.6 pg (27.0-33.0); Mean Corpuscular Volume 81.1 fL (80-98); Mean Platelet Volume 9.7 fL (9.4-12.4); Monocytes Absolute Auto 1.8 X10*3/uL (0.1-1.2); Monocytes Percent Auto 9.9 % (2-11); Neutrophils Absolute Auto 13.1 X10*3/uL (2.0-8.3); Neutrophils Percent Auto 73.8 % (45-73); Platelet Count 375 X10*3/uL (160-400); Red Blood Count 6.35 X10*6/uL (4.60-5.80); Red Cell Distribution Width 15.2 % (11.0-16.0); SCAN SMEAR FLAG 1; White Blood Count 17.8 X10*3/uL (4.8-10.8)
[2020-10-15 07:15] LABS: Anion Gap 15 (12-20); Blood Urea Nitrogen 14 mg/dL (9-16); Calcium 9.5 mg/dL (8.4-10.2); Carbon Dioxide 32 mmol/L (22-29); Chloride 97 mmol/L (96-108); Creatinine Clr Calc Pharmacy 149.8; Estimated Glomerular Filt Rate > 60; Glucose Random 85 mg/dL (60-115); Potassium 4.9 mmol/L (3.3-5.1); Sodium 139 mmol/L (135-145)
[2020-10-15 07:19] LABS: Anion Gap 16 (12-20); Blood Urea Nitrogen 13 mg/dL (9-16); Calcium 9.5 mg/dL (8.4-10.2); Carbon Dioxide 32 mmol/L (22-29); Chloride 98 mmol/L (96-108); Creatinine Clr Calc Pharmacy 144.3; Estimated Glomerular Filt Rate > 60; Glucose Random 83 mg/dL (60-115); Potassium 4.9 mmol/L (3.3-5.1); Sodium 141 mmol/L (135-145)
[2020-10-15 07:24] LABS: SLIDE REVIEW VERIFIED
[2020-10-15] MEDS: 0.9 % Sodium Chloride Flush 3 ML SYRINGE IVFLUSH ×2 (08:23→17:29)
[2020-10-15] MEDS: Nicotine 14 MG PATCH.TD24 TRANSDERMA (08:25)
[2020-10-15] MEDS: Atorvastatin Calcium 40 MG TABLET PO (08:25)
[2020-10-15] MEDS: lisinopriL 2.5 MG TABLET PO (08:25)
[2020-10-15 09:32] LABS: B Type Natriuretic Peptide 402 pg/mL (<100)
[2020-10-15] MEDS: Furosemide 40 MG/4 ML VIAL IVPUSH ×2 (09:53→19:55)
--- NOTE | 2020-10-15 11:45 | PM.PNCARD ---
Subjective Subjective Date of Service: 10/15/20 Principal diagnosis: CHF Interval history: Patient says he is feeling better. Leg edema is improved. Shortness of breath is improved. He also said he is diuresing well but no urine output chart maintained. Denies palpitations, lightheadedness. Remains in sinus tachycardia. Review of Systems Constitutional: Reports no additional constitutional complaints Cardiovascular: Reports no additional cardiovascular complaints Respiratory: Reports no additional respiratory complaints Musculoskeletal: Reports no additional musculoskeletal complaints Reports system reviewed and no additional complaints, except as documented Psychiatric: Reports no additional psychiatric complaints Endocrine: Reports no additional endocrine complaints Hematologic/Lymphatic: Reports no additional hematologic/lymphatic complaints Physical Exam Vital Signs: Last Vital Signs Temp 97.0 F 10/15/20 10:56 Pulse 109 H 10/15/20 10:56 Resp 20 10/15/20 10:56 BP 116/70 10/15/20 10:56 Pulse Ox 93 10/15/20 10:56 Body Mass Index 39.1 Const General: cooperative, comfortable, no acute distress, alert and awake Nutritional Appearance: obese Orientation/consciousness: patient oriented x3 Neck Neck: Yes trachea midline, Yes supple and Yes JVD Resp Auscultation: rhonchi throughout Cardio Jugular venous distension: JVD Rhythm: regular rhythm Heart sounds: S1 normal heart sound present and S2 normal heart sound present GI Inspection: Yes obesity Auscultation: normal bowel sounds Skin General skin exam: no rashes or lesions noted Neuro General: patient oriented x3 and no focal motor deficits Extrem General: Yes edema Results Labs and Meds Result diagrams: 10/15/20 05:20 10/15/20 05:20 Lab results: Laboratory Results - last 24 hr 10/14/20 10/14/20 10/14/20 03:08 18:11 18:11 WBC RBC Hgb Hct MCV MCH MCHC RDW Plt Count MPV Immature Gran % (Auto) Neut % (Auto) Lymph % (Auto) [place] % (Auto) Eos % (Auto) Baso % (Auto) Lymph # (Auto) [place] # (Auto) Eos # (Auto) Baso # (Auto) Abs Immat Gran (auto) Absolute Neuts (auto) Absolute Nucleated RBC Nucleated RBC % (auto) Smear Tech's Comments VBG pH 7.33 VBG pCO2 67 VBG pO2 49 VBG HCO3 36 H VBG O2 Saturation 81.0 VBG Base Excess 7.4 Sodium Potassium Chloride Carbon Dioxide Anion Gap BUN Creatinine Estim Creat Clear Calc Estimated GFR Random Glucose Calcium Troponin I High Sens 138.1 H B-Natriuretic Peptide 449 H 10/15/20 10/15/20 10/15/20 05:20 05:20 05:20 WBC 17.8 H RBC 6.35 H Hgb 15.0 Hct 51.5 MCV 81.1 MCH 23.6 L MCHC 29.1 L RDW 15.2 Plt Count 375 MPV 9.7 Immature Gran % (Auto) 0.4 Neut % (Auto) 73.8 H Lymph % (Auto) 15.7 L [place] % (Auto) 9.9 Eos % (Auto) 0.0 Baso % (Auto) 0.2 Lymph # (Auto) 2.8 [place] # (Auto) 1.8 H Eos # (Auto) 0.0 Baso # (Auto) 0.0 Abs Immat Gran (auto) 0.07 H Absolute Neuts (auto) 13.1 H Absolute Nucleated RBC 0.000 Nucleated RBC % (auto) 0.0 Smear Tech's Comments VERIFIED VBG pH VBG pCO2 VBG pO2 VBG HCO3 VBG O2 Saturation VBG Base Excess Sodium 139 141 Potassium 4.9 4.9 Chloride 97 98 Carbon Dioxide 32 H 32 H Anion Gap 15 16 BUN 14 13 Creatinine 0.78 0.81 Estim Creat Clear Calc 149.8 144.3 Estimated GFR > 60 > 60 Random Glucose 85 83 Calcium 9.5 D 9.5 Troponin I High Sens B-Natriuretic Peptide 10/15/20 05:20 WBC RBC Hgb Hct MCV MCH MCHC RDW Plt Count MPV Immature Gran % (Auto) Neut % (Auto) Lymph % (Auto) [place] % (Auto) Eos % (Auto) Baso % (Auto) Lymph # (Auto) [place] # (Auto) Eos # (Auto) Baso # (Auto) Abs Immat Gran (auto) Absolute Neuts (auto) Absolute Nucleated RBC Nucleated RBC % (auto) Smear Tech's Comments VBG pH VBG pCO2 VBG pO2 VBG HCO3 VBG O2 Saturation VBG Base Excess Sodium Potassium Chloride Carbon Dioxide Anion Gap BUN Creatinine Estim Creat Clear Calc Estimated GFR Random Glucose Calcium Troponin I High Sens B-Natriuretic Peptide 402 H Progress Note: A&P Assessment and plan (1) Acute exacerbation of CHF (congestive heart failure): Status: Acute Assessment and Plan: Acute congestive heart failure in young man with significant obesity and high likelihood of underlying obstructive sleep apnea with [id number] LV systolic dysfunction and with flattened interventricular septum consistent with RV pressure overload with elevated right atrial pressures. High likelihood of underlying obstructive sleep apnea causing predominantly right heart failure syndrome. He appears to be still volume overloaded. Would continue with IV diuresis Lasix. Needs strict intake and output chart measurement. Discussed with the patient. Please provide him with appropriate tools. CHF education should be provided. His baseline tachycardia could be related to his congestive heart failure syndrome. Will slowly add low-dose metoprolol 12.5 mg q.6 hours to his regimen. Continue lisinopril at current dose given lowish blood pressure. Also add Aldactone 12.5 mg to his regimen. Will eventually require sleep study. Will follow with the patient. Fall Risk Details Current Medications: Current Medications Generic Name Dose Route Start Last Admin Trade Name Freq PRN Reason Stop Dose Admin Acetaminophen 650 mg 10/14/20 16:47 Acetaminophen 325 Mg Tablet PO Q6H PRN Pain, Mild (Pain Scale 1-3) Atorvastatin Calcium 40 mg 10/14/20 16:47 10/15/20 08:25 Atorvastatin Calcium 40 Mg Tablet PO 40 mg DAILY TERRANCE Administration Docusate Sodium 100 mg 10/14/20 16:47 Docusate Sodium 100 Mg Capsule PO DAILY PRN Constipation Furosemide 40 mg 10/15/20 09:00 10/15/20 09:53 Furosemide 40 Mg/4 Ml Vial IVPUSH 40 mg Q12H TERRANCE Administration Protocol Heparin Sodium (Porcine) 5,000 unit 10/14/20 18:00 10/15/20 05:15 Heparin Sodium,Porcine 5,000 Unit/Ml Vial SUBCUT 5,000 unit Q12H TERRANCE Administration Lisinopril 2.5 mg 10/14/20 11:00 10/15/20 08:25 Lisinopril 2.5 Mg Tablet PO 2.5 mg DAILY TERRANCE Administration Protocol Nicotine 14 mg 10/14/20 17:40 10/15/20 08:25 Nicotine 14 Mg Patch.Td24 TRANSDERMA 14 mg DAILY TERRANCE Administration Ondansetron HCl 4 mg 10/14/20 16:47 Ondansetron Hcl 4 Mg/2 Ml Vial IVPUSH Q8H PRN Nausea and Vomiting Pharmacy Consult 1 each 10/14/20 02:15 Consult Rx Perform Med Rec MISCELLANE ONCE PRN Consult order Sodium Chloride 3 ml 10/14/20 16:47 10/15/20 08:23 0.9 % Sodium Chloride Flush 3 Ml Syringe IVFLUSH 3 ml QSHIFT TERRANCE Administration Time Spent With Patient Time: Total time spent is greater than 50% in coordination of care (as documented) at patient's floor/unit and/or counseling patient: Time with patient: 25 - 35 minutes
--- NOTE | 2020-10-15 14:37 | P.PNIM_ITS ---
Subjective Subjective Date of Service: 10/15/20 Interval History: the patient was seen and evaluated this morning Laying in bed, feels comfortable overall O2 sat drops to 80s with ambulation, oxygen supplement Denies any fever, chills or chest pain No reported other overnight events. Systemic review: No fever, chills or weakness No chest pain, palpitation Still complaining of shortness of breath with ambulation requiring oxygen No abdominal pain, nausea or vomiting No urinary symptoms No any rash or wounds Physical Exam Vital Signs: Vital Signs: Last Vital Signs Temp 97.0 F 10/15/20 10:56 Pulse 109 H 10/15/20 10:56 Resp 20 10/15/20 10:56 BP 116/70 10/15/20 10:56 Pulse Ox 93 10/15/20 10:56 Body Mass Index 39.1 Const: Other: Constitutional : Alert, oriented, not in distress Neck : Normal inspection, Supple Cardiovascular : RRR, S1 S2, +3 bilateral lower extremity edema Respiratory : Decrease bilateral air entry, basal bilateral crackles, no whee zes or rhonchi Gastrointestinal: soft, lax, Normal bowel sounds, Non tender Skin : Warm/Dry, No rash Neurological : Alert & oriented x3, No focal deficit Objective Data Current Medications Generic Name Dose Route Start Last Admin Trade Name Freq PRN Reason Stop Dose Admin Acetaminophen 650 mg 10/14/20 16:47 Acetaminophen 325 Mg Tablet PO Q6H PRN Pain, Mild (Pain Scale 1-3) Atorvastatin Calcium 40 mg 10/14/20 16:47 10/15/20 08:25 Atorvastatin Calcium 40 Mg Tablet PO 40 mg DAILY TERRANCE Administration Docusate Sodium 100 mg 10/14/20 16:47 Docusate Sodium 100 Mg Capsule PO DAILY PRN Constipation Furosemide 40 mg 10/15/20 09:00 10/15/20 09:53 Furosemide 40 Mg/4 Ml Vial IVPUSH 40 mg Q12H TERRANCE Administration Protocol Heparin Sodium (Porcine) 5,000 unit 10/14/20 18:00 10/15/20 05:15 Heparin Sodium,Porcine 5,000 Unit/Ml Vial SUBCUT 5,000 unit Q12H TERRANCE Administration Lisinopril 2.5 mg 10/14/20 11:00 10/15/20 08:25 Lisinopril 2.5 Mg Tablet PO 2.5 mg DAILY TERRANCE Administration Protocol Nicotine 14 mg 10/14/20 17:40 10/15/20 08:25 Nicotine 14 Mg Patch.Td24 TRANSDERMA 14 mg DAILY TERRANCE Administration Ondansetron HCl 4 mg 10/14/20 16:47 Ondansetron Hcl 4 Mg/2 Ml Vial IVPUSH Q8H PRN Nausea and Vomiting Pharmacy Consult 1 each 10/14/20 02:15 Consult Rx Perform Med Rec MISCELLANE ONCE PRN Consult order Sodium Chloride 3 ml 10/14/20 16:47 10/15/20 08:23 0.9 % Sodium Chloride Flush 3 Ml Syringe IVFLUSH 3 ml QSHIFT TERRANCE Administration Labs CBC & Chem 7: 10/15/20 05:20 10/15/20 05:20 Microbiology Microbiology Results: Microbiology 10/14/20 00:54 Blood - Venous Blood Culture - Preliminary No growth after 24 hours. 10/14/20 00:54 Blood - Venous Blood Culture - Preliminary No growth after 24 hours. Assessment and Plan (1) Acute exacerbation of CHF (congestive heart failure): Status: Acute (2) Lower extremity edema: Status: Acute Assessment and Plan: 40-year-old male with past medical history of asthma presents to the hospital with lower extremity edema. acute CHF exacerbation/onset Elevated BNP chest CT angiogram showing pleural effusion Continue Lasix 40 IV b.i.d. strict I&O, low-sodium diet, daily weight Continue atorvastatin Started on low-dose of lisinopril Echo showing decreased ejection of fraction of 40-45% Cardiology input appreciated, continue with IV Lasix and add metoprolol as tolerated asthma Not in exacerbation continue albuterol inhaler p.r.n. Leukocytosis Likely reactive with no acute infectious process identified continue to monitor for any signs of infection Snoring High risk for [place] Will need outpatient sleep study Smoking Advised to quit An RT DVT prophylaxis: Heparin subQ
[2020-10-16] VITALS (8 sets, daily range): BP systolic 108–125; BP diastolic 50–92; PULSE 98–115; RESP 15–20; TEMP 36.4–37.3; O2SAT 90–96; BMI 45.3
[2020-10-16] MEDS: 0.9 % Sodium Chloride Flush 3 ML SYRINGE IVFLUSH ×4 (00:02→23:41)
[2020-10-16] MEDS: Heparin Sodium,Porcine 5,000 UNIT/ML VIAL 5000 UNIT SUBCUT ×2 (06:22→17:37)
[2020-10-16 06:52] LABS: Hematocrit 51.7 % (42-52); Mean Corpuscular Hemoglobin 23.6 pg (27.0-33.0); Mean Corpuscular Volume 81.3 fL (80-98); Mean Platelet Volume 8.8 fL (9.4-12.4); Platelet Count 349 X10*3/uL (160-400); Red Blood Count 6.36 X10*6/uL (4.60-5.80); Red Cell Distribution Width 15.1 % (11.0-16.0); White Blood Count 14.2 X10*3/uL (4.8-10.8)
[2020-10-16 07:17] LABS: Blood Urea Nitrogen 17 mg/dL (9-16); Calcium 9.2 mg/dL (8.4-10.2); Creatinine Clr Calc Pharmacy 154.7; Estimated Glomerular Filt Rate > 60; Glucose Random 94 mg/dL (60-115)
[2020-10-16 07:20] LABS: B Type Natriuretic Peptide 280 pg/mL (<100)
[2020-10-16 07:26] LABS: Anion Gap 14 (12-20); Carbon Dioxide 37 mmol/L (22-29); Chloride 94 mmol/L (96-108); Potassium 4.4 mmol/L (3.3-5.1); Sodium 141 mmol/L (135-145)
--- NOTE | 2020-10-16 08:56 | MHC.CM.PN ---
Met with Patient at bedside and spoke with /Cristina @ [phone]. Patient lives in an apartment with Cristina and he is functionally independent and independent with his colostomy. Goal for dc is home no services and CM has initiated and will follow for dc planning. PCP is from [facility] in [place].
[2020-10-16] MEDS: Furosemide 40 MG/4 ML VIAL IVPUSH ×2 (09:06→20:24)
[2020-10-16] MEDS: lisinopriL 2.5 MG TABLET PO (09:08)
[2020-10-16] MEDS: Spironolactone 25 MG TABLET 12.5 MG PO ×2 (09:08→17:37)
[2020-10-16] MEDS: Atorvastatin Calcium 40 MG TABLET PO (09:08)
[2020-10-16] MEDS: Nicotine 14 MG PATCH.TD24 TRANSDERMA (09:09)
[2020-10-16] MEDS: Metoprolol Tartrate 12.5 MG HALFTAB PO ×4 (09:09→20:25)
--- NOTE | 2020-10-16 13:05 | PM.PNCARD ---
Subjective Subjective Date of Service: 10/16/20 Principal diagnosis: CHF Interval history: Patient feeling better. Ambulated the entire river[place] without significant shortness of breath. Diuresed well overnight with well maintained output chart. Review of Systems Constitutional: Reports no additional constitutional complaints Cardiovascular: Reports no additional cardiovascular complaints Respiratory: Reports no additional respiratory complaints Gastrointestinal: Reports no additional gastrointestinal complaints Genitourinary: Reports no additional male genitourinary complaints Reports system reviewed and no additional complaints, except as documented Endocrine: Reports no additional endocrine complaints Physical Exam Vital Signs: Last Vital Signs Temp 98.2 F 10/16/20 11:19 Pulse 104 H 10/16/20 11:19 Resp 18 10/16/20 11:19 BP 119/58 L 10/16/20 11:19 Pulse Ox 92 10/16/20 11:19 Body Mass Index 45.3 Const General: cooperative, comfortable, no acute distress, alert and awake Nutritional Appearance: obese Orientation/consciousness: patient oriented x3 Limitations: no limitations Neck Neck: Yes trachea midline, Yes supple and Yes no JVD Resp Effort & Inspection: normal respiratory effort Auscultation: rhonchi throughout Cardio Jugular venous distension: no JVD Palpation: normal PMI Rate: regular rate Rhythm: regular rhythm Heart sounds: S1 normal heart sound present and S2 normal heart sound present Neuro General: patient oriented x3 and no focal motor deficits Extrem General: No clubbing, No cyanosis and Yes edema (Much improved) Results Labs and Meds Result diagrams: 10/16/20 06:02 10/16/20 06:02 Lab results: Laboratory Results - last 24 hr 10/16/20 10/16/20 10/16/20 06:02 06:02 06:02 WBC 14.2 H RBC 6.36 H Hgb 15.0 Hct 51.7 MCV 81.3 MCH 23.6 L MCHC 29.0 L RDW 15.1 Plt Count 349 MPV 8.8 L Absolute Nucleated RBC 0.000 Nucleated RBC % (auto) 0.0 Sodium 141 Potassium 4.4 Chloride 94 L Carbon Dioxide 37 H Anion Gap 14 BUN 17 H Creatinine 0.82 Estim Creat Clear Calc 154.7 Estimated GFR > 60 Random Glucose 94 Calcium 9.2 B-Natriuretic Peptide 280 H Progress Note: A&P Assessment and plan (1) Acute exacerbation of CHF (congestive heart failure): Status: Acute Assessment and Plan: Acute heart failure, predominantly right-sided heart failure with RV dilation as well as elevated right atrial pressures. Clinically much improved fluid status. Switch to p.o. diuretics. Patient can be discharged home. Will require outpatient followup and workup including sleep study to evaluate for significant sleep apnea which is highly likely in this patient. Heart failure education to be provided. Patient can be discharged home. Will follow up as outpatient. Thank you for allowing us to partake in his care Fall Risk Details Current Medications: Current Medications Generic Name Dose Route Start Last Admin Trade Name Freq PRN Reason Stop Dose Admin Acetaminophen 650 mg 10/14/20 16:47 Acetaminophen 325 Mg Tablet PO Q6H PRN Pain, Mild (Pain Scale 1-3) Atorvastatin Calcium 40 mg 10/14/20 16:47 10/16/20 09:08 Atorvastatin Calcium 40 Mg Tablet PO 40 mg DAILY TERRANCE Administration Docusate Sodium 100 mg 10/14/20 16:47 Docusate Sodium 100 Mg Capsule PO DAILY PRN Constipation Furosemide 40 mg 10/15/20 09:00 10/16/20 09:06 Furosemide 40 Mg/4 Ml Vial IVPUSH 40 mg Q12H TERRANCE Administration Protocol Heparin Sodium (Porcine) 5,000 unit 10/14/20 18:00 10/16/20 06:22 Heparin Sodium,Porcine 5,000 Unit/Ml Vial SUBCUT 5,000 unit Q12H TERRANCE Administration Lisinopril 2.5 mg 10/14/20 11:00 10/16/20 09:08 Lisinopril 2.5 Mg Tablet PO 2.5 mg DAILY TERRANCE Administration Protocol Metoprolol Tartrate 12.5 mg 10/16/20 09:00 10/16/20 09:09 Metoprolol Tartrate 12.5 Mg Halftab PO 12.5 mg QID TERRANCE Administration Protocol Nicotine 14 mg 10/14/20 17:40 10/16/20 09:09 Nicotine 14 Mg Patch.Td24 TRANSDERMA 14 mg DAILY TERRANCE Administration Ondansetron HCl 4 mg 10/14/20 16:47 Ondansetron Hcl 4 Mg/2 Ml Vial IVPUSH Q8H PRN Nausea and Vomiting Pharmacy Consult 1 each 10/14/20 02:15 Consult Rx Perform Med Rec MISCELLANE ONCE PRN Consult order Sodium Chloride 3 ml 10/14/20 16:47 10/16/20 09:06 0.9 % Sodium Chloride Flush 3 Ml Syringe IVFLUSH 3 ml QSHIFT TERRANCE Administration Spironolactone 12.5 mg 10/16/20 09:00 10/16/20 09:08 Spironolactone 25 Mg Tablet PO 12.5 mg BID@0900,1800 [facility] Administration Protocol Time Spent With Patient Time: Total time spent is greater than 50% in coordination of care (as documented) at patient's floor/unit and/or counseling patient: Time with patient: 15 - 24 minutes
--- NOTE | 2020-10-16 14:40 | HO.PM.IMPN ---
Subjective Subjective Date of Service: 10/16/20 Interval History: the patient was seen and evaluated this morning Laying in bed, feels comfortable overall O2 sat drops to 80s with ambulation, requiring oxygen supplement Denies any fever, chills or chest pain No reported other overnight events. Systemic review: No fever, chills or weakness No chest pain, palpitation Still complaining of shortness of breath with ambulation requiring oxygen No abdominal pain, nausea or vomiting No urinary symptoms No any rash or wounds Physical Exam Vital Signs: Vital Signs: Last Vital Signs Temp 98.2 F 10/16/20 11:19 Pulse 104 H 10/16/20 13:31 Resp 18 10/16/20 11:19 BP 124/67 10/16/20 13:31 Pulse Ox 92 10/16/20 11:19 Body Mass Index 45.3 Const: Other: Constitutional : Alert, oriented, not in distress Neck : Normal inspection, Supple Cardiovascular : RRR, S1 S2, +1 bilateral lower extremity edema Respiratory : Decrease bilateral air entry, basal bilateral crackles, no wheezes or rhonchi Gastrointestinal: soft, lax, Normal bowel sounds, Non tender Skin : Warm/Dry, No rash Neurological : Alert & oriented x3, No focal deficit Objective Data Current Medications Generic Name Dose Route Start Last Admin Trade Name Freq PRN Reason Stop Dose Admin Acetaminophen 650 mg 10/14/20 16:47 Acetaminophen 325 Mg Tablet PO Q6H PRN Pain, Mild (Pain Scale 1-3) Atorvastatin Calcium 40 mg 10/14/20 16:47 10/16/20 09:08 Atorvastatin Calcium 40 Mg Tablet PO 40 mg DAILY TERRANCE Administration Docusate Sodium 100 mg 10/14/20 16:47 Docusate Sodium 100 Mg Capsule PO DAILY PRN Constipation Furosemide 40 mg 10/15/20 09:00 10/16/20 09:06 Furosemide 40 Mg/4 Ml Vial IVPUSH 40 mg Q12H TERRANCE Administration Protocol Heparin Sodium (Porcine) 5,000 unit 10/14/20 18:00 10/16/20 06:22 Heparin Sodium,Porcine 5,000 Unit/Ml Vial SUBCUT 5,000 unit Q12H TERRANCE Administration Lisinopril 2.5 mg 10/14/20 11:00 10/16/20 09:08 Lisinopril 2.5 Mg Tablet PO 2.5 mg DAILY TERRANCE Administration Protocol Metoprolol Tartrate 12.5 mg 10/16/20 09:00 10/16/20 13:31 Metoprolol Tartrate 12.5 Mg Halftab PO 12.5 mg QID TERRANCE Administration Protocol Nicotine 14 mg 10/14/20 17:40 10/16/20 09:09 Nicotine 14 Mg Patch.Td24 TRANSDERMA 14 mg DAILY TERRANCE Administration Ondansetron HCl 4 mg 10/14/20 16:47 Ondansetron Hcl 4 Mg/2 Ml Vial IVPUSH Q8H PRN Nausea and Vomiting Pharmacy Consult 1 each 10/14/20 02:15 Consult Rx Perform Med Rec MISCELLANE ONCE PRN Consult order Sodium Chloride 3 ml 10/14/20 16:47 10/16/20 09:06 0.9 % Sodium Chloride Flush 3 Ml Syringe IVFLUSH 3 ml QSHIFT TERRANCE Administration Spironolactone 12.5 mg 10/16/20 09:00 10/16/20 09:08 Spironolactone 25 Mg Tablet PO 12.5 mg BID@0900,1800 [facility] Administration Protocol Labs CBC & Chem 7: 10/16/20 06:02 10/16/20 06:02 Microbiology Microbiology Results: Microbiology 10/14/20 00:54 Blood - Venous Blood Culture - Preliminary No growth after 48 hours. 10/14/20 00:54 Blood - Venous Blood Culture - Preliminary No growth after 48 hours. Assessment and Plan (1) Acute exacerbation of CHF (congestive heart failure): Status: Acute (2) Lower extremity edema: Status: Acute Assessment and Plan: 40-year-old male with past medical history of asthma presents to the hospital with lower extremity edema. Acute hypoxic respiratory failure acute systolic CHF exacerbation Elevated BNP chest CT angiogram showing pleural effusion Continue Lasix 40 IV b.i.d. strict I&O, negative balance of 2 L yesterday low-sodium diet, daily weight Continue atorvastatin Started on low-dose of lisinopril Echo showing decreased ejection of fraction of 40-45% Cardiology input appreciated, add metoprolol and spironolactone asthma Not in exacerbation continue albuterol inhaler p.r.n. Leukocytosis Likely reactive with no acute infectious process identified continue to monitor for any signs of infection Snoring High risk for EVERTON Will need outpatient sleep study Smoking Advised to quit An RT DVT prophylaxis: Heparin subQ
--- NOTE | 2020-10-16 17:08 | PC.NURSE ---
lATE ENTRY: 1200- PT ROOM AIR SATS 90-91% AT REST. Ambulated approximately 200 feet. SATS MAINTAINED 93-94% FOR ABOUT 150 FEET THEN DROPPED TO 88% ON ROOM AIR. PT ALSO STATED HE FELT DIZZY. DR DERAS NOTIFIED
[2020-10-17] VITALS (7 sets, daily range): BP systolic 118–158; BP diastolic 71–86; PULSE 99–128; RESP 16–20; TEMP 36.7–36.8; O2SAT 88–98; BMI 44.5
[2020-10-17] MEDS: Heparin Sodium,Porcine 5,000 UNIT/ML VIAL 5000 UNIT SUBCUT ×2 (05:47→17:38)
[2020-10-17 07:04] LABS: Anion Gap 13 (12-20); Blood Urea Nitrogen 16 mg/dL (9-16); Calcium 9.1 mg/dL (8.4-10.2); Carbon Dioxide 37 mmol/L (22-29); Chloride 96 mmol/L (96-108); Creatinine Clr Calc Pharmacy 158.8; Estimated Glomerular Filt Rate > 60; Glucose Random 94 mg/dL (60-115); Potassium 4.1 mmol/L (3.3-5.1); Sodium 142 mmol/L (135-145)
[2020-10-17 07:05] LABS: B Type Natriuretic Peptide 223 pg/mL (<100)
[2020-10-17] MEDS: 0.9 % Sodium Chloride Flush 3 ML SYRINGE IVFLUSH ×3 (08:01→20:36)
[2020-10-17] MEDS: Furosemide 40 MG/4 ML VIAL IVPUSH (08:01)
[2020-10-17] MEDS: Metoprolol Tartrate 12.5 MG HALFTAB PO (08:02)
[2020-10-17] MEDS: Spironolactone 25 MG TABLET 12.5 MG PO ×2 (08:02→17:37)
[2020-10-17] MEDS: Atorvastatin Calcium 40 MG TABLET PO (08:02)
[2020-10-17] MEDS: lisinopriL 2.5 MG TABLET PO (08:02)
[2020-10-17] MEDS: Nicotine 14 MG PATCH.TD24 TRANSDERMA (08:03)
[2020-10-17] MEDS: Metoprolol Succinate ER 25 MG TAB.ER.24H 75 MG PO (09:59)
--- NOTE | 2020-10-17 12:19 | MHC.CM.PN ---
per rounds pt to have an home 02 eval dc expected later today or tomorrow
--- NOTE | 2020-10-17 12:21 | MHC.CM.PN ---
per multidis rounds pt is on iv zosyn and a venting mask,dc erxpected in 1 to 2 days
--- NOTE | 2020-10-17 13:30 | PM.PNPUL ---
Subjective Subjective Date of Service: 10/17/20 Principal diagnosis: CHF Objective Data Labs CBC & Chem 7: 10/16/20 06:02 10/17/20 05:52 Labs: Laboratory Results - last 24 hr 10/17/20 10/17/20 05:52 05:52 Sodium 142 Potassium 4.1 Chloride 96 Carbon Dioxide 37 H Anion Gap 13 BUN 16 Creatinine 0.79 Estim Creat Clear Calc 158.8 Estimated GFR > 60 Random Glucose 94 Calcium 9.1 B-Natriuretic Peptide 223 H Microbiology Microbiology Results: Microbiology 10/14/20 00:54 Blood - Venous Blood Culture - Preliminary No growth after 48 hours. 10/14/20 00:54 Blood - Venous Blood Culture - Preliminary No growth after 48 hours. Physical Exam Vital Signs: Vital Signs: Last Vital Signs Temp 98.1 F 10/17/20 03:32 Pulse 107 H 10/17/20 11:45 Resp 20 10/17/20 11:45 BP 136/78 10/17/20 11:45 Pulse Ox 98 10/17/20 11:45 Body Mass Index 44.5 Assessment and Plan Assessment and plan (1) COPD (chronic obstructive pulmonary disease): Status: Acute (2) Atelectasis of right lung: Status: Acute (3) Obesity: Status: Acute (4) EVERTON (obstructive sleep apnea): Status: Acute Time Spent With Patient Time: Total time spent is greater than 50% in coordination of care (as documented) at patient's floor/unit and/or counseling patient:
--- NOTE | 2020-10-17 13:53 | PM.EVENT ---
Event Note Date of Service: 10/17/20 Event Note: I HAVE SEEN THIS PATIENT FOR PULMONARY CONSULTATION. REVIEWED HIS HOSPITAL COURSE, LAB AND IMAGING. COMPLETE NOTE IS DICTATED. A: PRIMARY DIAGNOSIS IS ACUTE ON CHRONIC CONGESTIVE HEART FAILURE WHICH IS IMPROVING. HE PROBABLY DOES HAVE HISTORY OF BRONCHIAL ASTHMA/AND MILD RESTRICTIVE PULMONARY DISEASE. MORBID OBESITY. OBESE T RELATED EVERTON/HYPOVENTILATION IS SUSPECTED. SMOKER P: VENOUS BLOOD GAS STUDY, SHOWED HAVE OVERNIGHT OXIMETRY RECORDING ON ROOM AIR. INCENTIVE SPIROMETRY FOR DEEP BREATHING EXERCISES. PATIENT IS GO GOING TO NEED SLEEP STUDY OUTPATIENT. START ON BREO-101 INHALATION DAILY, EMPIRICALLY, HE WOULD NEED TO HAVE COMPLETE PULMONARY FUNCTION TEST, OUTPATIENT. AND FORCE SMOKING CESSATION, HE LIKES NICOTINE PATCH WHICH SHOULD BE CONTINUED. HE WOULD ALSO NEED TO JOIN A WEIGHT REDUCTION PROGRAM.
--- NOTE | 2020-10-17 14:57 | P.PNIM_ITS ---
Subjective Subjective Date of Service: 10/17/20 Interval History: the patient was seen and evaluated this morning Laying in bed, feels comfortable overall Maintaining oxygen levels at this point, still have significant lower extremity edema Denies any fever, chills or chest pain No reported other overnight events. Systemic review: No fever, chills or weakness No chest pain, palpitation Still complaining of shortness of breath with ambulation requiring oxygen No abdominal pain, nausea or vomiting No urinary symptoms No any rash or wounds Physical Exam Vital Signs: Vital Signs: Last Vital Signs Temp 98.1 F 10/17/20 03:32 Pulse 107 H 10/17/20 11:45 Resp 20 10/17/20 11:45 BP 136/78 10/17/20 11:45 Pulse Ox 98 10/17/20 11:45 Body Mass Index 44.5 Const: Other: Constitutional : Alert, oriented, not in distress Neck : Normal inspection, Supple Cardiovascular : RRR, S1 S2, +1 bilateral lower extremity edema Respiratory : Decrease bilateral air entry, basal bilateral crackles, no wheezes or rhonchi but noticed increased work of breathing with ambulation Gastrointestinal: soft, lax, Normal bowel sounds, Non tender Skin : Warm/Dry, No rash Neurological : Alert & oriented x3, No focal deficit Objective Data Current Medications Generic Name Dose Route Start Last Admin Trade Name Arunq PRN Reason Stop Dose Admin Acetaminophen 650 mg 10/14/20 16:47 Acetaminophen 325 Mg Tablet PO Q6H PRN Pain, Mild (Pain Scale 1-3) Atorvastatin Calcium 40 mg 10/14/20 16:47 10/17/20 08:02 Atorvastatin Calcium 40 Mg Tablet PO 40 mg DAILY TERRANCE Administration Docusate Sodium 100 mg 10/14/20 16:47 Docusate Sodium 100 Mg Capsule PO DAILY PRN Constipation Furosemide 40 mg 10/15/20 09:00 10/17/20 08:01 Furosemide 40 Mg/4 Ml Vial IVPUSH 40 mg Q12H TERRANCE Administration Protocol Heparin Sodium (Porcine) 5,000 unit 10/14/20 18:00 10/17/20 05:47 Heparin Sodium,Porcine 5,000 Unit/Ml Vial SUBCUT 5,000 unit Q12H TERRANCE Administration Lisinopril 2.5 mg 10/14/20 11:00 10/17/20 08:02 Lisinopril 2.5 Mg Tablet PO 2.5 mg DAILY TERRANCE Administration Protocol Metoprolol Succinate 75 mg 10/17/20 09:50 10/17/20 09:59 Metoprolol Succinate Er 25 Mg Tab.Er.24h PO 75 mg DAILY TERRANCE Administration Protocol Nicotine 14 mg 10/14/20 17:40 10/17/20 08:03 Nicotine 14 Mg Patch.Td24 TRANSDERMA 14 mg DAILY TERRANCE Administration Ondansetron HCl 4 mg 10/14/20 16:47 Ondansetron Hcl 4 Mg/2 Ml Vial IVPUSH Q8H PRN Nausea and Vomiting Pharmacy Consult 1 each 10/14/20 02:15 Consult Rx Perform Med Rec MISCELLANE ONCE PRN Consult order Sodium Chloride 3 ml 10/14/20 16:47 10/17/20 08:01 0.9 % Sodium Chloride Flush 3 Ml Syringe IVFLUSH 3 ml QSHIFT TERRANCE Administration Spironolactone 12.5 mg 10/16/20 09:00 10/17/20 08:02 Spironolactone 25 Mg Tablet PO 12.5 mg BID@0900,1800 [facility] Administration Protocol Labs CBC & Chem 7: 10/16/20 06:02 10/17/20 05:52 Microbiology Microbiology Results: Microbiology 10/14/20 00:54 Blood - Venous Blood Culture - Preliminary No growth after 48 hours. 10/14/20 00:54 Blood - Venous Blood Culture - Preliminary No growth after 48 hours. Assessment and Plan (1) Acute exacerbation of CHF (congestive heart failure): Status: Acute (2) Lower extremity edema: Status: Acute Assessment and Plan: 40-year-old male with past medical history of asthma presents to the hospital with lower extremity edema. Acute hypoxic respiratory failure acute systolic CHF exacerbation Elevated BNP chest CT angiogram showing pleural effusion Change Lasix to p.o. 40 b.i.d. strict I&O, negative balance of 2.2 L yesterday low-sodium diet, daily weight Continue atorvastatin Continue on low-dose of lisinopril Change metoprolol to 75 XL Echo showing decreased ejection of fraction of 40-45% Cardiology input appreciated, add metoprolol and spironolactone asthma Not in exacerbation continue albuterol inhaler p.r.n. Leukocytosis Likely reactive with no acute infectious process identified continue to monitor for any signs of infection Snoring High risk for EVERTON To do overnight O2 monitoring on room for evaluation of need of BiPAP at discharge Continue incentive spirometry Pulmonary input appreciated, to check VBG and overnight O2 study Smoking Advised to quit An RT DVT prophylaxis: Heparin subQ
[2020-10-17] MEDS: Furosemide 40 MG TABLET PO (17:37)
[2020-10-18 03:09] VITALS: BP 116/60; PULSE 108; RESP 18; TEMP 37; O2SAT 88
[2020-10-18] MEDS: Heparin Sodium,Porcine 5,000 UNIT/ML VIAL 5000 UNIT SUBCUT (05:27)
[2020-10-18 06:00] VITALS: BMI 44.6
[2020-10-18 06:27] LABS: Anion Gap 15 (12-20); Blood Urea Nitrogen 14 mg/dL (9-16); Carbon Dioxide 32 mmol/L (22-29); Chloride 98 mmol/L (96-108); Creatinine Clr Calc Pharmacy 160.9; Estimated Glomerular Filt Rate > 60; Glucose Random 98 mg/dL (60-115); Potassium 4.2 mmol/L (3.3-5.1); Sodium 141 mmol/L (135-145)
[2020-10-18 07:35] LABS: B Type Natriuretic Peptide 172 pg/mL (<100)
[2020-10-18 07:43] VITALS: BP 136/70; PULSE 100; RESP 16; TEMP 37.1; O2SAT 98
[2020-10-18 07:47] VITALS: BP 136/70; PULSE 100
[2020-10-18] MEDS: 0.9 % Sodium Chloride Flush 3 ML SYRINGE IVFLUSH (07:47)
[2020-10-18] MEDS: Metoprolol Succinate ER 25 MG TAB.ER.24H 75 MG PO (07:47)
[2020-10-18 07:48] VITALS: BP 136/70; PULSE 100
[2020-10-18] MEDS: Spironolactone 25 MG TABLET 12.5 MG PO (07:48)
[2020-10-18] MEDS: Atorvastatin Calcium 40 MG TABLET PO (07:48)
[2020-10-18] MEDS: Nicotine 14 MG PATCH.TD24 TRANSDERMA (07:48)
[2020-10-18] MEDS: Furosemide 40 MG TABLET PO (07:48)
[2020-10-18] MEDS: lisinopriL 2.5 MG TABLET PO (07:48)
[2020-10-18 08:27] LABS: VBG Base Excess 8.4 mmol/L; VBG HCO3 35 mmol/L (22-26); VBG pCO2 56 mmHg; VBG pO2 95 mmHg
[2020-10-18 08:31] LABS: Venous Blood Gas Refer to POC result
--- NOTE | 2020-10-18 10:09 | CONS_ITS ---
DATE OF SERVICE: 10/17/2020 HISTORY OF PRESENT ILLNESS: This 40-year-old gentleman is seen for pulmonary evaluation and consult. He has been hospitalized since 10/14/2020 with increasing shortness of breath for 4 to 5 days. On admission, his evaluation indicated that the patient was in acute on chronic congestive heart failure, diastolic type, the patient has been diuresed gradually and has improved. Current issue is that he still continues to require oxygen on minimal exertion. Talking to the patient, it appears that he has been using some kind of bronchodilator inhaler off and on for a few years, but he does not know the diagnosis. The patient is a long-term smoker. This gentleman has been morbidly obese throughout his adult life, worse in the past few years. The patient has had colon surgery with colostomy in place. PERSONAL HISTORY: He smokes 1 pack of cigarettes a day. Since in the hospital, he is on nicotine patch and likes it. The patient also smokes marijuana almost on a daily basis. Talking about sleep with him, he does not understand much, but does admit that he snores a lot and wakes up frequently at night. He does not admit to being overly sleepy during the daytime. PHYSICAL EXAMINATION: GENERAL: A 40-year-old gentleman is walking in the room without much distress. He is morbidly obese and has a round face. HEENT: Oropharynx is crowded. Mallampati class 4. NECK: Neck size 18 inches. Trachea in midline. No lymphadenopathy and no jugular venous distention in the sitting position. CHEST: Chest wall is very obese. Percussion note is not perceptible. Breath sounds are distant. He has a few expiratory wheezes over the posterior aspect of the chest, especially in the upper areas. Has a few basilar crepitations. CARDIAC: Sounds are distant. Rhythm regular. No murmurs. ABDOMEN: Grossly obese and protuberant, but soft and nontender. EXTREMITIES: Only trace of pitting edema at this time. Peripheral pulses are faintly palpable. No evidence of phlebitis. DIAGNOSTIC DATA: His chest x-ray and CTA of the chest shows a small pleural effusion over the right base with minimal bibasilar atelectasis. There is no mass and no interstitial lung disease. The patient had oxygen evaluation for home early today and he does desaturate on walking. Respiratory rate is 20. O2 saturation at rest is 98%. CLINICAL IMPRESSION: 1. Morbid obesity. 2. Clinically, the patient has obstructive sleep apnea and maybe hypoventilation syndrome. 3. He has chronic bronchial asthma and some degree of restrictive pulmonary disease. 4. At present, he has small pleural effusion, right side secondary to congestive heart failure and also has bibasilar atelectasis. RECOMMENDATIONS: 1. Incentive spirometry q.8 hours to improve his lung ventilation. 2. Venous blood gases to check CO2 level. 3. The patient should have overnight oximetry recording on room air. 4. This gentleman would need a sleep study as outpatient, which can be arranged after his discharge. 5. If his overnight oximetry recording shows periods of hypoxemia, then he may need oxygen supplementation for home. 6. He would need to be on a weight reduction program, which can be initiated as outpatient. 7. Smoking cessation to continue. 8. Because he does have some expiratory wheezes and there is history of asthma like condition in the past, I would start him on Breo-100 one inhalation daily and see if it helps his breathing. Thank you very much for asking me to see this patient. MD MARIANNA Valerio/MIKE / [phone]
--- NOTE | 2020-10-18 10:16 | P.PNPL_ITS ---
Subjective Subjective Date of Service: 10/18/20 Principal diagnosis: CHF/resp. failure Interval history: Subjectively this gentleman feels okay and does not have any shortness of breath cough or chest pain. Patient is able to walk around without any issue. Repeat venous gas study does show slight improvement but still has elevated pCO2 of 57. Overnight oximetry recording was done but I do not have the results. Objective Data Labs CBC & Chem 7: 10/16/20 06:02 10/18/20 05:27 Labs: Laboratory Results - last 24 hr 10/18/20 10/18/20 10/18/20 05:27 05:27 08:20 VBG pH 7.40 VBG pCO2 56 VBG pO2 95 VBG HCO3 35 H VBG O2 Saturation 98.0 VBG Base Excess 8.4 Sodium 141 Potassium 4.2 Chloride 98 Carbon Dioxide 32 H Anion Gap 15 BUN 14 Creatinine 0.78 Estim Creat Clear Calc 160.9 Estimated GFR > 60 Random Glucose 98 Calcium 9.0 B-Natriuretic Peptide 172 H Microbiology Microbiology Results: Microbiology 10/14/20 00:54 Blood - Venous Blood Culture - Preliminary No growth after 48 hours. 10/14/20 00:54 Blood - Venous Blood Culture - Preliminary No growth after 48 hours. Review of Systems Review of Systems Yes all other systems are reviewed and are negative Reports system reviewed and no additional complaints, except as documented Cardiovascular: Reports no additional cardiovascular complaints Respiratory: Reports wheezing (mild) Gastrointestinal: Reports no additional gastrointestinal complaints Musculoskeletal: Reports no additional musculoskeletal complaints Reports system reviewed and no additional complaints, except as documented and Reports Abnormal speech present Allergic/Immunologic: Reports wheezing (mild) Physical Exam Vital Signs: Vital Signs: Last Vital Signs Temp 98.7 F 10/18/20 07:43 Pulse 100 10/18/20 07:48 Resp 16 10/18/20 07:43 BP 136/70 10/18/20 07:48 Pulse Ox 98 10/18/20 07:43 Body Mass Index 44.6 Const: General: healthy appearing (but over weight .), comfortable, no acute distress, alert and awake Orientation/consciousness: patient oriented x3 HENMT: Head: Yes normal to inspection General nose exam: No nasal polyps present and No nasal discharge present Face and sinus: Yes sinuses nontender Mouth: oropharynx abnormals (crowded , mallampatti class= 4) Throat: Yes posterior oropharynx normal Eyes: General: appearance normal, both eyes and all related structures Neck: Neck: Yes normal visual inspection, Yes no lymphadenopathy, Yes trachea midline, Yes no JVD and Yes other (Neck size 18 in) Thyroid: Thyroid normal Chest: Chest palpation & inspection: normal inspection of the chest and normal palpation of entire chest wall Resp: Other: Breath sounds are distant, no crepitations, a few scattered expiratory wheezes are heard. Cardio: Palpation: normal PMI Rate: regular rate Rhythm: regular rhythm Heart sounds: no gallops and no murmurs Peripheral pulses: Peripheral pulse s 2+ throughout GI: Palpation (GI): Soft to palpation, nontender, No hepatosplenomegaly present and no masses Auscultation: normal bowel sounds Back/Spine/Pelvis: Thoracic/Lumbar Spine: thoracic and lumbar spine normal to inspection Skin: General skin exam: no rashes or lesions noted Neuro: General: patient oriented x3 and no focal motor deficits Cranial nerves: Yes CN's II-XII intact bilaterally Speech: Abnormal speech present Extrem: General: Yes normal to inspection, Yes no clubbing, cyanosis or edema, Yes no calf tenderness and No venous stasis dermatitis Psych: Speech and movement: Normal speech and movement present Assessment and Plan Assessment and plan (1) Acute exacerbation of CHF (congestive heart failure): Problem details: Diastolic congestive heart failure with acute exacerbation, improved with treatment Status: Acute (2) Obesity: Problem details: He has to morbid obesity, would need to join a weight management program as outpatient. Status: Acute (3) EVERTON (obstructive sleep apnea): Problem details: Clinically seems to have obstructive sleep apnea, secondary to morbid obesity. He would need a sleep study as outpatient, to be started on CPAP therapy. Status: Acute (4) Atelectasis of right lung: Problem details: It is minimal and should improve with incentive spirometry. Status: Acute (5) COPD (chronic obstructive pulmonary disease): Problem details: Patient has history of bronchial asthma and possible COPD. Empirically started on Breo-100 one inh daily Patient would need pulmonary function test as outpatient, and then adjustment in his ongoing treatment Status: Acute Time Spent With Patient Time: Total time spent is greater than 50% in coordination of care (as documented) at patient's floor/unit and/or counseling patient: Time with patient: 15 - 24 minutes
--- NOTE | 2020-10-18 10:59 | CONS_ITS ---
DATE OF SERVICE: 10/17/2020 HISTORY OF PRESENT ILLNESS: I have seen this 40-year-old gentleman today. He was admitted with complaint of worsening shortness of breath on minimal exertion on 10/14/2020. The symptoms were increasing over 4 to 5 days. He had minimal cough without much mucus. He had no fever, chills, or chest pain or palpitations. The patient had developed increasing edema of the legs. He has been treated with mild diuresis or congestive heart failure and has responded well with his improved shortness of breath and not requiring any oxygen at this time. The CTA of the chest was negative for pulmonary embolism. Blood gases have been abnormal showing CO2 retention while hypoxemia is improved. The patient is grossly obese and there is a question of sleep apnea with hypoventilation syndrome. PAST MEDICAL HISTORY: Includes mild bronchial asthma. The patient has been using some bronchodilator inhaler, but he does not know the name. The patient also has had colostomy. REVIEW OF SYSTEMS: Basically not remarkable at this time except for mild shortness of breath when he walks around. He denies any chest pain. Denies any GI or symptoms. Denies any musculoskeletal pains. PERSONAL HISTORY: The patient does have history of smoking 1 pack of cigarettes a day and he also uses marijuana on a daily basis. PHYSICAL EXAMINATION: GENERAL: This 40-year-old gentleman is morbidly obese with round face, neck size is 18 inches. HEENT: Oropharynx is crowded, Mallampati class 4. CHEST: The chest wall is obese. Percussion note not perceptible. Breath sounds are quite distant and scattered expiratory wheezes are heard over the back of the chest. CARDIAC: PMI is not palpable. Heart sounds are distant. Rhythm is regular at this time. ABDOMEN: Moderately obese and protuberant. EXTREMITIES: Trace of pitting edema are noted. No cough tenderness. No evidence of phlebitis. IMAGING: Chest x-ray on admission shows small lung volumes and there is a very small right pleural effusion. Minimal airspace disease noted in the basilar areas. CTA of the chest, no evidence of pulmonary embolism. Small right-sided pleural effusion with mild atelectasis of the basilar area. Venous blood gas on 10/14 showed pH 7.33, pCO2 of 67, PO2 of 49, and bicarb of 36. CLINICAL IMPRESSION: 1. The primary issue at this time is congestive heart failure, which is improved with diuresis. 2. Morbid obesity. 3. Obstructive sleep apnea, clinical diagnosis. 4. Evidence of chronic hypoventilation, compensated. 5. Past history of bronchial asthma and the patient may have restrictive pulmonary disease. RECOMMENDATION: 1. We will repeat venous blood gas study. 2. Incentive spirometry is ordered. 3. The patient is started on Breo-100 one inhalation daily. 4. The patient should have overnight oximetry recording on room air. 5. The patient would need a sleep study as outpatient, to be started on CPAP therapy. 6. The patient would also need complete pulmonary function test which can be done as outpatient. 7. Smoking cessation to be continued. He seemed to be tolerating nicotine patches okay. Thank you very much for asking me to see this patient and he can be discharged home in stable, and we will continue to follow him as outpatient. MD MARIANNA Valerio/MIKE / [phone]
--- NOTE | 2020-10-18 11:13 | PM.DS ---
DS: Providers Provider Date of Service: 10/18/20 Date of admission: 10/14/20 03:56 Primary care physician: Unknown Physician Consults: 10/14/20 07:51 Consult to Cardiology Routine Consulting Provider: Zana Bell Reason for consultation: new onsef CHF 10/17/20 11:43 Consult to Pulmonology Routine Consulting Provider: Kandace Carrera Reason for consultation: Evaluate for persistent hypoxia with exertion DS: Diagnosis Discharge Diagnosis (1) Acute exacerbation of CHF (congestive heart failure): Status: Acute (2) Obesity: Status: Acute (3) [place] (obstructive sleep apnea): Status: Acute (4) Atelectasis of right lung: Status: Acute (5) COPD (chronic obstructive pulmonary disease): Status: Acute (6) Acute respiratory failure with hypoxia: Status: Acute DS: Medications Discharge Medications Home Medications: Previous Rx's Medication Instructions Recorded atorvastatin 40 mg PO DAILY #30 tab 10/18/20 fluticasone furoate-vilanterol 1 puff INHALATION RDAILY #1 ea 10/18/20 [Breo Ellipta] furosemide 40 mg PO BID@0900,1800 #60 tab 10/18/20 lisinopril 2.5 mg PO DAILY #30 tab 10/18/20 metoprolol succinate 75 mg PO DAILY #30 tab 10/18/20 nicotine 14 mg TRANSDERMAL DAILY #30 ea 10/18/20 spironolactone 12.5 mg PO BID@0900,1800 #30 tab 10/18/20 DS: Summary Hospital Course Hospital Course: Admission note HPI 40-year-old male with past medical history of asthma presents to the hospital with complaints of lower extremity edema for the past few days. Patient reports that he noticed swelling in his feet bilaterally as well as dyspnea on exertion that was worsening over the past 4-5 days. He also has a cough that is productive, no fever or chills, no chest pain, no palpitations. Denies any similar episode in the past. Denies any history of heart disease. He denies any headache, change in vision, abdominal pain nausea or vomiting, no urinary symptoms and no lower extremity edema. No diarrhea or constipation. Arrival to the ED hemodynamically stable with a heart rate of 112, blood pressure of 140. Satting 80% on room air. Labs are significant for WBC count of 10.4, hemoglobin of 14.8, sodium of 142, potassium 4.4, BUN of 11, creatinine of 1, BNP of 435, COVID negative, chest CT angiogram shows no evidence of PE, small right pleural effusion with associated atelectasis, cardiomegaly. Hospital course Patient was admitted to the hospital for evaluation of acute hypoxic respiratory failure secondary to acute systolic CHF exacerbation as an echo showed decreased ejection fraction between 40-45%. The patient was treated mainly with IV Lasix as CTA of angiogram was negative for any PE and showed pleural effusion with elevated BNP level. He responded well to treatment with losing more than 6 L of fluid during the hospital stay. Evaluated by Cardiology team who recommended addition of metoprolol, atorvastatin, spironolactone, lisinopril and to continue treatment with Lasix at time of discharge. With a plan to follow up with Cardiology as outpatient for further evaluation and treatment. He was evaluated by pulmonology team for recurrent episode of hypoxia after treating the CHF. An overnight study was done showing multiple locations oxygen dropped below 90. He was ambulated with respiratory therapist for home O2 evaluation but he maintain her oxygen level in 90s during that. Pulmonary recommended to start Breo inhaler and to avoid smoking with plan to follow-up as outpatient for sleep study for evaluation of obstructive sleep apnea. He was advised to quit smoking and prescribed nicotine patches. Start Lasix, spironolactone, lisinopril and metoprolol as prescribed To use atorvastatin for cholesterol control Start Breo inhaler for COPD advise to lose weight advise to stop smoking, nicotine patches prescribed for you. To follow-up with Dr. Carrera office for arrangement of sleep study and pulmonary function test after calling the office for an appointment To follow-up with Dr. Cohen from cardiology as outpatient Time Spent with Patient Time attestation: Total time spent providing and/or coordinating discharge services: Discharge coordination time: Greater than 30 minutes Physical Exam Vital Signs: Vital Signs: Last Vital Signs Temp 98.7 F 10/18/20 07:43 Pulse 100 10/18/20 07:48 Resp 16 10/18/20 07:43 BP 136/70 10/18/20 07:48 Pulse Ox 98 10/18/20 07:43 Body Mass Index 44.6 Const: Other: Constitutional : Alert, oriented, not in distress Neck : Normal inspection, Supple Cardiovascular : RRR, S1 S2, trace bilateral lower extremity edema Respiratory : Good bilateral air entry, no crackles, wheezes or rhonchi Gastrointestinal: soft, lax, Normal bowel sounds, Non tender Skin : Warm/Dry, No rash Neurological : Alert & oriented x3, No focal deficit DS: Data Data Completed and Pending Labs on day of discharge: Laboratory Results - last 24 hr 10/18/20 10/18/20 10/18/20 05:27 05:27 08:20 VBG pH 7.40 VBG pCO2 56 VBG pO2 95 VBG HCO3 35 H VBG O2 Saturation 98.0 VBG Base Excess 8.4 Sodium 141 Potassium 4.2 Chloride 98 Carbon Dioxide 32 H Anion Gap 15 BUN 14 Creatinine 0.78 Estim Creat Clear Calc 160.9 Estimated GFR > 60 Random Glucose 98 Calcium 9.0 B-Natriuretic Peptide 172 H Preliminary micro results at discharge 10/14/20 00:54 Blood Culture - Preliminary Blood - Venous No growth after 48 hours. 10/14/20 00:54 Blood Culture - Preliminary Blood - Venous No growth after 48 hours. Discharge Plan Discharge Patient Disposition: Home Health Service Discharge Diagnosis: Acute congestive heart failure Obstructive sleep apnea Referrals: Physician,Unknown [Primary Care Provider] - 1 Week Discharge Medications: New furosemide 40 mg Tablet 40 mg PO BID@0900,1800 Qty: 60 RF: 0 atorvastatin 40 mg Tablet 40 mg PO DAILY Qty: 30 RF: 0 nicotine 14 mg/24 hr Patch 24 Hour 14 mg transdermal DAILY Qty: 30 RF: 0 spironolactone 25 mg Tablet 12.5 mg PO BID@0900,1800 Qty: 30 RF: 0 metoprolol succinate 25 mg Tablet Extended Release 24 Hr 75 mg PO DAILY Qty: 30 RF: 0 lisinopril 2.5 mg Tablet 2.5 mg PO DAILY Qty: 30 RF: 0 Breo Ellipta 100-25 mcg/dose Blister With Device 1 puff inhalation RDAILY Qty: 1 RF: 0 Discharge Orders: Discharge Order (Routine); Ordered 10/18/20 Ordered By: Marisa Green Diet: advance to usual diet Activity on Discharge: As tolerated Stand Alone Forms: Patient Portal Discharge page Other Ambulatory Orders: Basic Metabolic Panel (Routine) Timeframe: 1 Week Facility: [facility] - Location: Laboratory Ordered By: Marisa Green Care Plan Goals: Read below Health Concerns: Read below Plan of Treatment: You were admitted to the hospital for evaluation of difficulty breathing and lower extremity edema. Images and blood work were consistent with acute heart failure exacerbation. You were evaluated by brake [employer] as an echo your heart showed reduction of your heart function to around 40% from normal baseline of 50-60%. You were treated with IV water pills with good response as you lost more than 6 L of extra fluids of your body. Other medications added to have recovering your heart. You were also evaluated by lung doctor Debi for low oxygen level. We think you obstructive sleep apnea and you will need to follow-up as outpatient with Dr. Carrera to do a sleep study Assessment: Start Lasix, spironolactone, lisinopril and metoprolol as prescribed to control your fluid status and improve your heart function. To use atorvastatin for cholesterol control Start Breo inhaler for COPD We advise you to lose weight We advise you to stop smoking, nicotine patches prescribed for you. To follow-up with Dr. Carrera office for arrangement of sleep study after calling the office for an appointment To follow-up with Dr. Cohen from cardiology as outpatient
[2020-10-18 11:29] VITALS: BP 124/82; PULSE 100; RESP 18; TEMP 36.2; O2SAT 92
--- NOTE | 2020-10-18 11:38 | W.MHC.F2F ---
Service Date Service Date: 10/18/20 Reasons for Services Signs and symptoms assessed: You systolic CHF Reason for intermediate: medication management, medication treatment and teach disease management Homebound: Leaving the home is medically contraindicated at this time without the asist of a device and/or another person due th the listed conditions above and below. Certification: Based on the above findings, I certify that this patient is confined to the home and needs intermittent intermediate care, physical therapy and/or speech therapy, or continues to need occupational therapy. The patient is under my care, and I have initiated the establishment of the plan of care. The patient will be followed by a physician who will periodically review the plan of care.
--- NOTE | 2020-10-18 12:42 | MHC.CM.PN ---
pt cannot have a vna he does not have a primary care coordinator he hasnt been seen at [facility] since 2019 and md they will not sign orders dr lazcano will be notified
== END 2020-10-18 12:19 | disposition home health service (06) | DRG 194 ==
LOC: HO.ED 10-14 02:06 → HO.EDOVER 10-14 06:55 → HO.IMC 10-14 12:46
PROVIDERS: Physician Assistant; Admitting Provider Internal Medicine; Emergency Provider Internal Medicine; Visit Provider Student in an Organized Health Care Education/Training Program
DX: I50.21 Acute systolic (congestive) heart failure (principal); J96.01 Acute respiratory failure with hypoxia; E66.2 Morbid (severe) obesity with alveolar hypoventilation; Z68.41 Body mass index [BMI] 40.0-44.9, adult; J98.11 Atelectasis; J44.9 Chronic obstructive pulmonary disease, unspecified; L40.9 Psoriasis, unspecified; F17.210 Nicotine dependence, cigarettes, uncomplicated; Z71.6 Tobacco abuse counseling; Z20.822 Contact with and (suspected) exposure to COVID-19; Z93.3 Colostomy status; Z79.51 Long term (current) use of inhaled steroids; Z79.899 Other long term (current) drug therapy
CPT/HCPCS: 36415; 71046; 71275; 80048; 80307; 81001; 83605; 83880; 84484; 85025; 85027; 85379; 87040; 87491; 87591; 87635; 93005; 93306; 94640; 94644; 96374; 96375; 99285; J1940; J2930; Q9957; Q9967

== ENCOUNTER → 2020-10-25 13:49 | Outpatient (REF) | payer OTHER, SELFPAY | LOC: HO.SL 13:49 | PROVIDERS: Visit Provider Internal Medicine Cardiovascular Disease | DX: Z13.89 Encounter for screening for other disorder (principal) ==

== ENCOUNTER 2020-10-27 10:37 | Outpatient (REF) | payer OTHER, SELFPAY ==
[2020-10-27 12:45] LABS: Anion Gap 14 (12-20); Blood Urea Nitrogen 13 mg/dL (9-16); Calcium 10.1 mg/dL (8.4-10.2); Carbon Dioxide 32 mmol/L (22-29); Chloride 96 mmol/L (96-108); Estimated Glomerular Filt Rate > 60; Glucose Random 135 mg/dL (60-115); Potassium 5.1 mmol/L (3.3-5.1); Sodium 137 mmol/L (135-145)
[2020-10-27 12:59] LABS: B Type Natriuretic Peptide 97 pg/mL (<100)
== END 2020-10-27 10:38 | disposition home or self-care (01) ==
LOC: HO.LAB 10:37
PROVIDERS: Student in an Organized Health Care Education/Training Program; Visit Provider Nurse Practitioner Family
DX: I50.810 Right heart failure, unspecified (principal); I42.9 Cardiomyopathy, unspecified; J96.01 Acute respiratory failure with hypoxia; J45.909 Unspecified asthma, uncomplicated; E66.9 Obesity, unspecified; F17.210 Nicotine dependence, cigarettes, uncomplicated; Z79.899 Other long term (current) drug therapy
CPT/HCPCS: 36415; 80048; 83880; 99212

== ENCOUNTER → 2020-11-11 14:32 | Outpatient (BNVA) | payer OTHER, SELFPAY | PROVIDERS: Visit Provider Internal Medicine Pulmonary Disease | DX: G47.33 Obstructive sleep apnea (adult) (pediatric) (principal) | CPT/HCPCS: 99202 ==

== ENCOUNTER → 2020-12-15 09:32 | Outpatient (REF) | payer OTHER, SELFPAY ==
--- NOTE | ~2020-12-15 | NM_ITS ---
Myocardial perfusion study Indication: Right heart failure to assess for myocardial ischemia Technique: The patient was brought in for a Lexiscan perfusion study on 12/15/2020. Patient performed low-level exercise and was injected 0.4 mg of Lexiscan intravenously. Within a minute of injection, 40 mCi of sestamibi was given intravenously. Images were obtained using the SPECT gamma camera interlaced with the gating device. Images were obtained in supine position. Resting perfusion study was performed on 12/23/2020. Patient was administered 40 mCi of sestamibi intravenously at rest. Images were then obtained in supine position. Images obtained with and without CT attenuation. Total DLP 136 mGy-cm. Images were processed with the software and compared side to side in short axis, horizontal long axis and vertical long axis views. Findings: The stress perfusion study showed nonattenuated images show mildly reduced uptake in the anterior as well as mildly reduced uptake in the anterolateral wall of the LV myocardium. Attenuation corrected images show mildly to moderately reduced uptake in the apex of the LV myocardium.. The gated study shows reduced LV systolic function with calculated LVEF of 33%. LV cavity is moderately dilated size. The gated study shows reduced diffuse wall thickening and contraction of segments. Resting study shows nonattenuated images show normal uptake of radiotracer in all segments of LV myocardium. Attenuation corrected images show minimally reduced uptake in the apex of the LV myocardium.. Gating at rest reveals diffusely reduced wall motion with ejection fraction at 27%. The findings are consistent with equivocal finding of possible mild anterior and anterolateral ischemia.. NM/NM cardiolite stress test Impression: 1. Myocardial perfusion imaging study shows possible anterior and anterolateral ischemia seen on nonattenuated images. 2. Gated LVEF is 33% 3. Transient ischemic dilatation not present but LV cavity is dilated EKG is nondiagnostic for ischemia
--- NOTE | 2020-12-15 09:37 | CA_ITS ---
Acquisition Time: 2020-12-15 09:38:06 Total Exercise Time: 00:01:52 Test Indications: SOB Medications: SEE CHART Protocol: CYNDI Max HR: 137 BPM 76% of Pred: 179 BPM Max BP: 130/080 mmHG Max Work Load: 4.3 METS Exercise stress test with exercise 1 min 52 sec of Cyndi protocol, with request to stop due to shortness of breath and lightheadedness, no chest discomfort, with nondiagnostic EKG for ischemia due to suboptimal heart rate and exercise time. Treadmill stopped and pt asisted to sitting position. Testing changed to a pharmacological stress test with Lexiscan injection, while sitting and kicking his legs, without anginal symptoms, with isolated PVC, with normotensive response to injection, with nondiagnostic EKG for ischemia. Nuclear images pending. Test reviewed with Dr Cohen. Referred By: Ángela Jaffe Overread By: ÁNGELA JAFFE
== END ==
LOC: HO.CARD 09:32
PROVIDERS: Visit Provider Nurse Practitioner Family
DX: I42.9 Cardiomyopathy, unspecified (principal); I50.810 Right heart failure, unspecified; J96.01 Acute respiratory failure with hypoxia; F17.200 Nicotine dependence, unspecified, uncomplicated
CPT/HCPCS: 78452; 93017; A9500; J0280; J2785